=== PATIENT | male | born 1950 | race Caucasian/White ===

== ENCOUNTER 2023-11-23 20:18 | Emergency (ER) | payer MEDICARE, BC, SELFPAY ==
[2023-11-23 20:23] VITALS: BP 136/80; PULSE 96; RESP 21; TEMP 37.1; O2SAT 96
--- NOTE | 2023-11-23 20:29 | ECG_ITS ---
Test Date: 2023-11-23 20:34:16 Measurements Intervals [place] Rate: 97 P: 30 FL: 163 QRS: 3 QRSD: 97 T: 65 QT: 349 QTc: 443 Interpretive Statements SINUS RHYTHM NONSPECIFIC T-WAVE ABNORMALITY No previous ECG available for comparison Electronically Signed On 11-24-2023 08:53:33 CDT by Joshua Sunshine M.D.
[2023-11-23 20:31] VITALS: PULSE 96
[2023-11-23 20:32] VITALS: BP 136/80; PULSE 100; RESP 21; TEMP 37.1; O2SAT 96
[2023-11-23 20:52] LABS: Basophils Percent Auto 0.3 % (0.2-1.2); Hematocrit 41.6 % (42.0-52.0); Hemoglobin 14.1 g/dL (14.0-18.0); Immature Granulocyte Absolute 0.02 K/mm3 (0.00-0.031); Immature Granulocyte Percent A 0.2 % (0-0.5); Lymphocytes Absolute Auto 0.47 K/mm3 (0.9-3.2); Lymphocytes Percent Auto 5.1 % (18.3-44.2); Mean Corpuscular HGB Conc 33.9 g/dl (32-36); Mean Corpuscular Hemoglobin 31.9 pg (26-34); Mean Corpuscular Volume 94.1 fl (80-100); Mean Platelet Volume 10.4 fl (7.4-10.4); Monocytes Percent Auto 11.1 % (2.6-8.5); Neutrophils Absolute Auto 7.6 K/mm3 (1.3-6.7); Neutrophils Percent Auto 83.3 % (45.5-73.1); Platelet Count Result 159 k/mm3 (150-375); Red Blood Count 4.42 M/mm3 (4.6-6.20); Red Cell Distribution Width 12.6 % (11.5-14.5); White Blood Count 9.1 K/mm3 (4.5-10.0)
[2023-11-23 21:02] LABS: Alanine Aminotransferase 8 U/L (6-50); Albumin Level 4.2 g/dL (3.5-5.1); Alkaline Phosphatase 73 U/L (38-126); Anion Gap 11 mmol/L (4-12); Aspartate Amino Transferase 25 U/L (17-59); Bilirubin,Total 0.9 mg/dL (0.2-1.3); Blood Urea Nitrogen 17 mg/dL (9-20); Calcium 8.7 mg/dL (8.4-10.2); Carbon Dioxide 22 mmol/L (22-30); Chloride 102 mmol/L (98-107); Estimated CRCL calculation 57 ml/min; Estimated Glomerular Filt Rate > 60; Glucose 153 mg/dL (65-110); Lactic Acid Reflex 1.4 mmol/L (0.7-2.0); Magnesium 1.9 mg/dL (1.6-2.3); Potassium 4.2 mmol/L (3.4-5.0); Sodium 135 mmol/L (137-145)
[2023-11-23 21:07] VITALS: BP 131/82; PULSE 96; RESP 23; O2SAT 95
[2023-11-23] MEDS: SODIUM CHLORIDE 0.9% IV 1,000 ML 999 ML IV CONT (21:32)
--- NOTE | 2023-11-24 02:02 | ED.SYNCOPE ---
HPI - Syncope General Chief Complaint: Syncope Stated Complaint: syncope, covid+ Time Seen by Provider: 11/23/23 20:28 History of Present Illness HPI narrative: Patient was started feeling poorly yesterday with cough, has been slightly lightheaded and has diminished appetite, felt like he was going to pass out twice today, worse when he stands up or walks. Denies any headache or head trauma or neck pain. Related Data Allergies Allergy/AdvReac Type Severity Reaction Status Date / Time meperidine [From Demerol] Allergy Nausea and Verified 11/23/23 20:34 Vomiting Review of Systems Review of Systems: All systems reviewed & are unremarkable except as noted in HPI and below Exam Narrative: EXAMINATION OF ORGAN SYSTEMS/BODY AREAS: Constitutional: Vital signs per nursing GENERAL:[No acute distress, non-toxic appearing.] HEAD: Normal with no signs of head trauma. EYES: EOMI, conjunctiva normal ENT: Hearing grossly intact LUNGS: Nonlabored breathing. HEART: [Regular rate and rhythm] ABD: [Soft], [nontender to palpation] EXT: Normal range of motion SKIN: [No rashes or lesions.] NEURO: [Alert and oriented x 3. No gross focal sensory or strength deficits.] PSYCH: Normal affect Course Vital Signs Vital signs: Vital Signs Temperature 98.7 F 11/23/23 20:23 Pulse Rate 96 11/23/23 20:23 Respiratory Rate 21 H 11/23/23 20:23 Blood Pressure 136/80 11/23/23 20:23 Pulse Oximetry 96 11/23/23 20:23 Oxygen Delivery Room Air 11/23/23 20:23 Temperature 98.7 F 11/23/23 20:32 Pulse Rate 96 11/23/23 21:07 Respiratory Rate 23 H 11/23/23 21:07 Blood Pressure 131/82 11/23/23 21:07 Pulse Oximetry 95 11/23/23 21:07 Oxygen Delivery Room Air 11/23/23 20:32 MDM - Syncope MDM Narrative Medical decision making narrative: 73-year-old male presents with syncope in the setting of COVID infection and dehydration; denies head trauma or pain anywhere. He speak with clear speech has no focal neurologic deficits. He is very well-appearing here, given a L of IV fluids, labs are within acceptable limits, EKG on my independent interpretation shows normal sinus rhythm rate 97, MT, QRS, QTC normal, normal axis, no obvious ST elevations or depressions. Vital signs are normal, he is given a L of IV fluids, and on re-evaluation states that he is feeling much better. No longer feeling lightheaded. I will give him a prescription for pass fluid and have him follow up with his primary doctor, with strict return precautions. Patient agreeable to this plan. Lab Data 11/23/23 20:45 11/23/23 20:45 Labs: Lab Results 11/23/23 Range/Units 20:45 WBC 9.1 (4.5-10.0) K/mm3 RBC 4.42 L (4.6-6.20) M/mm3 Hgb 14.1 (14.0-18.0) g/dL Hct 41.6 L (42.0-52.0) % MCV 94.1 (80-100) fl MCH 31.9 (26-34) pg MCHC 33.9 (32-36) g/dl RDW 12.6 (11.5-14.5) % Plt Count 159 (150-375) k/mm3 MPV 10.4 (7.4-10.4) fl Immature Gran % (Auto) 0.2 (0-0.5) % Neut % (Auto) 83.3 H (45.5-73.1) % Lymph % (Auto) 5.1 L (18.3-44.2) % [place] % (Auto) 11.1 H (2.6-8.5) % Eos % (Auto) 0.0 (0-4.4) % Baso % (Auto) 0.3 (0.2-1.2) % Lymph # (Auto) 0.47 L (0.9-3.2) K/mm3 [place] # (Auto) 1.0 H (0.1-0.6) K/mm3 Eos # (Auto) 0.0 (0-0.3) K/mm3 Baso # (Auto) 0.0 (0.0-0.1) K/mm3 Abs Immat Gran (auto) 0.02 (0.00-0.031) K/mm3 Absolute Neuts (auto) 7.6 H (1.3-6.7) K/mm3 Absolute Nucleated RBC 0.000 (0.0-0.012) K/mm3 Nucleated RBC % 0.0 (0.0-0.2) % Sodium 135 L (137-145) mmol/L Potassium 4.2 (3.4-5.0) mmol/L Chloride 102 (98-107) mmol/L Carbon Dioxide 22 (22-30) mmol/L Anion Gap 11 (4-12) mmol/L BUN 17 (9-20) mg/dL Creatinine 1.00 (0.7-1.3) mg/dL Estim Creat Clear Calc 57 ml/min Estimated GFR > 60 (59 - ) Glucose 153 H (65-110) mg/dL Lactic Acid 1.4 (0.7-2.0) mmol/L Calcium 8.7 (8.4-10.2) mg/dL Magnesium 1.9 (1.6-2.3) mg/dL [place]
== END 2023-11-23 22:19 ==
PROVIDERS: Emergency Provider Emergency Medicine
DX: U07.1 COVID-19 (principal); R55 Syncope and collapse
CPT/HCPCS: 36415; 80053; 83605; 83735; 85025; 93005; 96360; 99284; J7030

== ENCOUNTER 2025-01-31 09:15 | Emergency (ER) | payer MEDICARE, BC, SELFPAY ==
[2025-01-31] VITALS (34 sets, daily range): BP systolic 71–157; BP diastolic 59–134; PULSE 77–117; RESP 12–34; TEMP 36.4; O2SAT 85–100
--- NOTE | ~2025-01-31 | CT_ITS ---
CHEST ABDOMEN PELVIS WITH CONTRAST CLINICAL HISTORY: syncope, right lower rib injury . COMPARISON: None TECHNIQUE: Helical CT performed from thoracic inlet to symphysis pubis IV contrast information not listed in PACS Coronal, sagittal reformats. Multi planar MIPS CT images acquired with automatic exposure control for dose reduction DLP: 936 mGy-cm FINDINGS: CHEST- Lungs/Pleura: Clear. Thoracic Aorta: No dissection. No aneurysm. Atherosclerotic disease. Pulmonary arteries: Normal caliber. Heart: Coronary artery calcifications. Tracheobronchial tree: Patent. Nodes: No enlarged nodes. Bones: No acute bony abnormality. Soft tissues: Unremarkable. ABDOMEN/PELVIS- Liver: Steatosis. Gallbladder: Unremarkable. Spleen: Unremarkable. Pancreas: Unremarkable. Adrenal glands: Unremarkable. Kidneys: lobulation and/or cortical defects. Right kidney- No hydronephrosis. No renal stones. Small probable cysts. Left kidney- No hydronephrosis. No renal stones. Small probable cysts. Distal esophagus/stomach: Unremarkable. Small bowel loops: Normal caliber and wall thickness. Colon: Normal caliber and wall thickness. Normal RLQ appendix. Moderate stool volume. Nodes: No enlarged nodes. Peritoneum: No ascites. No free air. Pelvis obscured by hip prostheses streak artifact. Urinary bladder: Unremarkable. Prostate: Obscured. Bones: No acute bony abnormality. L5 spondylolysis, with spondylolisthesis. Soft tissues: Unremarkable. Aorta: No aneurysm or dissection. Atherosclerotic disease. IVC: Unremarkable. Main portal vein/SMV/splenic vein: Patent. IMPRESSION: CHEST- 1. No acute findings. ABDOMEN/PELVIS- 1. No acute findings. Reviewed, dictated and finalized at location R.
--- NOTE | ~2025-01-31 | CT_ITS ---
CT HEAD NON-CONTRAST Clinical History: syncope, hit back of head Comparison: None Technique: Unenhanced axial images skull base to vertex Coronal, sagittal reformats CT images acquired with automatic exposure control for dose reduction DLP: 605 mGy-cm Findings: Mild age-related atrophy. White matter changes, typically chronic microvascular ischemic disease. Basal ganglia lacunae. Sulci, ventricles: Unremarkable. No intracerebral hemorrhage. No evidence acute territorial infarct. No mass effect, midline shift. Bony calvarium intact. Visualized paranasal sinuses: Clear. Mastoid air cells: Clear. IMPRESSION: 1. No acute intracranial findings. Reviewed, dictated and finalized at location R.
--- NOTE | ~2025-01-31 | XR_ITS ---
EXAMINATION: XR chest 1V 01/31/2025 10:00 INDICATION: Syncope PROCEDURE: AP view of the chest COMPARISON: No prior studies for comparison. FINDINGS: The lungs are clear. The cardiomediastinal silhouette is within normal limits. There are no pleural effusions. There is no pneumothorax suspected. IMPRESSION: 1: NO ACUTE CARDIOPULMONARY DISEASE. Reviewed, dictated and finalized at location O.
--- NOTE | 2025-01-31 09:19 | ECG_ITS ---
Test Date: 2025-01-31 09:21:30 Measurements Intervals [place] Rate: 86 P: 64 MT: 167 QRS: 51 QRSD: 97 T: 39 QT: 319 QTc: 383 Interpretive Statements SINUS RHYTHM NONSPECIFIC ST-T WAVE ABNORMALITY- DIFFUSE LEADS BASELINE ARTIFACT- I, II, III, AVR, AVL, AVF, V1-V6 BORDERLINE ECG Compared to ECG 11/23/2023 20:34:16 No significant changes Electronically Signed On 01-31-2025 11:23:53 CDT by Dale Willis D.O.
[2025-01-31 09:39] LABS: Hematocrit 44.0 % (42.0-52.0); Hemoglobin 14.5 g/dL (14.0-18.0); Immature Granulocyte Percent A 0.5 % (0-0.5); Lymphocytes Absolute Auto 1.64 K/mm3 (0.9-3.2); Mean Corpuscular HGB Conc 33.0 g/dl (32-36); Mean Corpuscular Hemoglobin 31.4 pg (26-34); Mean Corpuscular Volume 95.2 fl (80-100); Nucleated Red Blood Cells Absolute Auto 0.000 K/mm3 (0.0-0.012); Nucleated Red Blood Cells Perc 0.0 % (0.0-0.2); Platelet Count Result 214 k/mm3 (150-375); Red Blood Count 4.62 M/mm3 (4.6-6.20); White Blood Count 6.4 K/mm3 (4.5-10.0)
[2025-01-31 10:04] LABS: Alanine Aminotransferase 8 U/L (6-50); Albumin Level 4.3 g/dL (3.5-5.1); Alkaline Phosphatase 72 U/L (38-126); Anion Gap 10 mmol/L (4-12); Aspartate Amino Transferase 21 U/L (17-59); Bilirubin,Total 0.7 mg/dL (0.2-1.3); Blood Urea Nitrogen 21 mg/dL (9-20); Calcium 8.6 mg/dL (8.4-10.2); Carbon Dioxide 25 mmol/L (22-30); Chloride 104 mmol/L (98-107); Estimated CRCL calculation 54 ml/min; Estimated Glomerular Filt Rate > 60; Glucose 151 mg/dL (65-110); Potassium 4.2 mmol/L (3.4-5.0); Sodium 139 mmol/L (137-145); Total Protein 7.5 g/dL (6.3-8.2)
[2025-01-31] MEDS: SODIUM CHLORIDE 0.9% IV 1,000 ML 999 ML IV CONT ×2 (10:07→11:44)
[2025-01-31 10:13] LABS: INR 1.1; Prothrombin Time 14.3 Seconds (11.1-14.7)
[2025-01-31 10:14] LABS: Partial Thromboplastin Time 24.1 Seconds (22.3-36.8)
[2025-01-31 10:15] LABS: Troponin I < 0.012 ng/mL (0.000-0.034)
--- NOTE | 2025-01-31 11:37 | ED.SYNCOPE ---
HPI - Syncope General Chief Complaint: Syncope Stated Complaint: syncope Time Seen by Provider: 01/31/25 09:45 Source: patient, EMS and RN notes reviewed Mode of arrival: ambulatory Limitations: no limitations History of Present Illness HPI narrative: 74-year-old male patient presents to the ER via EMS complaining of a syncopal episode. Patient has a history of Parkinson's and orthostatic hypotension. Patient said this morning he said he was not feeling well when he was walking back to his room he fell down lost consciousness. Patient reports feeling dizzy and lightheaded prior to losing consciousness. Follow-up was witnessed by staff, only down for approximately 30 seconds. Patient apparently hit the back of his head. Patient is any headache, fevers, nausea, vomiting, neck pain, back pain, numbness, tingling and chest pain difficulty breathing, or any other symptoms. Patient reports he feels fine mildly since her every feels dizzy when he stands up. Related Data Allergies Allergy/AdvReac Type Severity Reaction Status Date / Time meperidine (From Demerol) Allergy Nausea and Verified 11/23/23 20:34 Vomiting Review of Systems Review of Systems: CONSTITUTIONAL: Denies fever, chills, or sweats. EYES: Denies visual changes, redness, or discharge. ENT: Denies rhinorrhea, congestion, sore throat, or otalgia. CARDIOVASCULAR: Denies chest pain, palpitations, edema. Positive for dizziness and lightheadedness. RESPIRATORY: Denies cough or dyspnea. GASTROINTESTINAL: Denies abdominal pain, nausea, vomiting, or diarrhea. GENITOURINARY: Denies dysuria or hematuria. SKIN: Denies rash or itching. MUSCULOSKELETAL: Denies back pain, joint pain, or myalgia. NEUROLOGIC: Denies headache, numbness, or weakness. Positive for loss of consciousness. PSYCHIATRIC: Denies anxiety or depression. All other systems reviewed are negative, except as documented in HPI. PMFSH Past Medical History Medical History Orthostatic hypotension Hyperlipidemia Major depressive disorder Dysphagia Parkinsons disease Comments At the time of my signature, I reviewed and agree with the nursing past medical, surgical, social, and family history. There is no relevant family history pertinent to the patient complaint. Exam Narrative: GENERAL: This is a well-nourished, well-developed adult, in no apparent distress. They are non ill-appearing, nontoxic appearing. HEAD: normocephalic, atraumatic. EYES: Sclera clear/white. Conjunctiva normal. Vision is grossly intact. Extraocular movements intact. Pupils PERRLA EARS: External ears normal, Hearing grossly intact. NOSE: External nose normal THROAT: Mucous membranes moist, NECK: Neck supple, non-tender without lymphadenopathy, masses or thyromegaly. No cervical point tenderness, crepitus, or step-offs. Neck is nontender through full range of motion. CARDIOVASCULAR: Regular rate and rhythm without murmurs, gallops, or rubs. RESPIRATORY: Clear to auscultation. Breath sounds equal bilaterally. No wheezes, rales, or rhonchi. SKIN: warm, Dry, intact with no suspicious lesions or rash, good texture and turgor. NEURO: awake, alert, and oriented to person, place and time. There were no obvious focal neurologic abnormalities. EXTREMITIES: No joint tenderness, effusion, or edema noted. BACK: Nontender without deformity. No CVA tenderness. Course Course Emergency Course: Portions of this record may have been created with voice recognition software Vital Signs Vital signs: Vital Signs Temperature 97.6 F 01/31/25 09:19 Pulse Rate 86 01/31/25 09:19 Respiratory Rate 15 01/31/25 09:19 Blood Pressure 127/92 H 01/31/25 09:19 Pulse Oximetry 100 01/31/25 09:19 Oxygen Delivery Room Air 01/31/25 09:19 Temperature 97.6 F 01/31/25 09:19 Pulse Rate 110 H 01/31/25 14:09 Respiratory Rate 34 H 01/31/25 14:09 Blood Pressure 90/73 L 01/31/25 14:09 Pulse Oximetry 98 01/31/25 14:09 Oxygen Delivery Room Air 01/31/25 09:38 Reviewed MDM - Syncope MDM Narrative Medical decision making narrative: Patient's orthostatics are positive, patient given 1 L of IV fluids. CBC grossly unremarkable, no leukocytosis, no anemia. Coags normal. Chemistry grossly unremarkable, slightly elevated BUN. Normal creatinine GFR. Initial troponin negative. 3 hour troponin pending. Head CT negative for any acute intracranial findings. PECARN C-spine injury score 0, no CT indicated for cervical spine my low suspicion for cervical injury. Patient having no point tenderness or pain with neck movement. Patient likely had a syncopal episode due to orthostatic hypotension. Patient is still orthostatic after 1 L of fluid, reporting feeling dizzy while standing, additional fluids given. Will recheck or throws after additional L. EKG sinus rhythm without any ischemic findings, no heart blocks or ectopy noted. EKG appears unchanged compared to previous EKG. Patient informed provider his left lower rib starting her, palpate lower ribs appears tenderness to palpation. No flail chest segment, no paradoxical movements, no obvious bruising injury to the left lower rib. Given patient's age in history will go ahead and obtain CT chest abdomen pelvis with contrast to assess for rib fractures to assess for any internal injuries from his fall. CT abdomen pelvis with contrast reveals no any acute injuries or acute findings. No evidence of rib fracture, patient likely has rib contusions. Patient is given incentive spirometer. Urine without any evidence of infection. Repeat orthostatics after 2 L of fluids reveals markedly improved blood pressure however still hypotensive and slightly dizzy. Patient is a known problem for orthostatic hypotension related to his Parkinson's disease. Patient does take midodrine at home, his family says that he has been having issue with hypertension from the midodrine and has been taking amlodipine and there has been a change in medications with his primary doctor between amlodipine and midodrine to help with the symptoms. The patient is comfortable with going home. Patient is hemodynamically stable to be discharged home for outpatient follow-up. Advised patient to change positions slowly especially while standing to have helped when he has to stand up and walk around. Also discussed with patient to talk about medication changes for his orthostatic hypotension. Discussed physical exam findings. Advised supportive measures and signs/symptoms to go to the ER. Pt is appropriate for outpt treatment and f/u. Differential Diagnosis Differential diagnosis: Likely syncope due to orthostatic hypotension, vasovagal syncope and subarachnoid hemorrhage Lab Data Attestation: I reviewed the patient's lab results. 01/31/25 09:32 01/31/25 09:32 Labs: Lab Results 01/31/25 01/31/25 01/31/25 Range/Units 09:32 12:38 13:42 WBC 6.4 (4.5-10.0) K/mm3 RBC 4.62 (4.6-6.20) M/mm3 Hgb 14.5 (14.0-18.0) g/dL Hct 44.0 (42.0-52.0) % MCV 95.2 (80-100) fl MCH 31.4 (26-34) pg MCHC 33.0 (32-36) g/dl RDW 12.5 (11.5-14.5) % Plt Count 214 (150-375) k/mm3 MPV 9.7 (7.4-10.4) fl Immature Gran % (Auto) 0.5 (0-0.5) % Neut % (Auto) 62.7 (45.5-73.1) % Lymph % (Auto) 25.7 (18.3-44.2) % [place] % (Auto) 7.5 (2.6-8.5) % Eos % (Auto) 2.8 (0-4.4) % Baso % (Auto) 0.8 (0.2-1.2) % Lymph # (Auto) 1.64 (0.9-3.2) K/mm3 [place] # (Auto) 0.5 (0.1-0.6) K/mm3 Eos # (Auto) 0.2 (0-0.3) K/mm3 Baso # (Auto) 0.1 (0.0-0.1) K/mm3 Abs Immat Gran (auto) 0.03 (0.00-0.031) K/mm3 Absolute Neuts (auto) 4.0 (1.3-6.7) K/mm3 Absolute Nucleated RBC 0.000 (0.0-0.012) K/mm3 Nucleated RBC % 0.0 (0.0-0.2) % PT 14.3 (11.1-14.7) Seconds INR 1.1 APTT 24.1 (22.3-36.8) Seconds Sodium 139 (137-145) mmol/L Potassium 4.2 (3.4-5.0) mmol/L Chloride 104 (98-107) mmol/L Carbon Dioxide 25 (22-30) mmol/L Anion Gap 10 (4-12) mmol/L BUN 21 H (9-20) mg/dL Creatinine 1.05 (0.7-1.3) mg/dL Estim Creat Clear Calc 54 ml/min Estimated GFR > 60 (59 - ) Glucose 151 H (65-110) mg/dL Calcium 8.6 (8.4-10.2) mg/dL Total Bilirubin 0.7 (0.2-1.3) mg/dL AST 21 (17-59) U/L ALT 8 (6-50) U/L Alkaline Phosphatase 72 (38-126) U/L Troponin I < 0.012 < 0.012 (0.000-0.034) ng/mL Total Protein 7.5 (6.3-8.2) g/dL Albumin 4.3 (3.5-5.1) g/dL Urine Color Yellow (Yellow) Urine Appearance Clear (Clear) Urine pH 7.0 (5.0-9.0) Ur Specific [place] 1.004 (1.001-1.035) Urine Protein Negative (Negative) mg/dL Urine Glucose (UA) Negative (Negative) mg/dL Urine Ketones Negative (Negative) mg/dL Ur Blood (Man) Negative (Negative) Urine Nitrate Negative (Negative) Urine Bilirubin Negative (Negative) Urine Urobilinogen 0.2 (<2.0) mg/dL Leukocyte Esterase Rfl Negative (Negative) FABY/UL Imaging Data Radiologist's impression: ITS Impressions Head CT 01/31/25 09:58 IMPRESSION: 1. No acute intracranial findings. Chest X-Ray 01/31/25 10:03 IMPRESSION: 1: NO ACUTE CARDIOPULMONARY DISEASE. CT CHEST/ABDOMEN/PELVIS W/ CONTRAST IMPRESSION: CHEST- 1. No acute findings. ABDOMEN/PELVIS- 1. No acute findings. ECG Data EKG #1: Attestation: I personally reviewed and interpreted this ECG as follows: ECG completion date: 01/31/25 ECG completion time: EKG Interpretation: normal rate, sinus rhythm, no ST changes, normal QRS, normal QT and NL axis Critical Care Time Critical Care Time Critical Care Time: No Discharge Plan Discharge Clinical Impression: Syncope due to orthostatic hypotension, Contusion of rib on left side Patient Disposition: Home Condition: Stable Instructions: Syncope (ED) Additional Instructions: Your workup today here in the ER is grossly unremarkable and reassuring. No evidence of infection any significant injuries. Is likely you have orthostatic hypotension related to her Parkinson's disease. Please change positions slowly, please have assistance when standing up. Drink plenty of fluids consume a adequate amount of salt. Please 2 g a day. Follow-up with your primary care provider 3-5 days about orthostatic hypotension. It is likely of a rib contusion from her fall today. Please use the incentive spirometer every 2 hours on the hour intake 10 deep breaths while awake to prevent any pneumonia. Return the ER if you pass out again, any other injuries, chest pain, difficulty breathing, fevers, cough for nausea vomiting, weakness, or any serious concerns. Patient Language: Swedish Prescriptions: No Action Paxlovid 300 mg (150 mg x 2)-100 mg tablets,dose pack See Rx Instructions .ROUTE .COMPLEX Qty: 30 0RF Rx Instructions: take TWO 150 mg tablets of nirmatrelvir with ONE 100 mg tablet of ritonavir twice daily for 5 days acetaminophen [Tylenol Extra Strength] 500 mg tablet 1,000 mg PO Q6H PRN (Reason: pain) Qty: 50 0RF Follow-up/Referrals: Tony,Lisandro Lino DO [Primary Care Provider, Unknown] Time of Disposition: 14:31
[2025-01-31 13:05] LABS: Troponin I < 0.012 ng/mL (0.000-0.034)
[2025-01-31 14:06] LABS: Add Urine Microscopic? NO; Appearance Urine Clear (Clear); Glucose Urine UA Negative (Negative); Leukocyte Esterase Ur Negative LEU/UL (Negative); Nitrate Urine Negative (Negative); Specific Grav Ur 1.004 (1.001-1.035)
[2025-01-31] MEDS: ACETAMINOPHEN 500 MG TABLET 1000 MG PO (14:20)
== END 2025-01-31 14:55 ==
PROVIDERS: Emergency Medicine; PCP Internal Medicine
DX: I95.1 Orthostatic hypotension (principal); S20.212A Contusion of left front wall of thorax, initial encounter; G20.A1 Parkinson's disease without dyskinesia, without mention of fluctuations; E78.5 Hyperlipidemia, unspecified; R94.31 Abnormal electrocardiogram [ECG] [EKG]; W18.39XA Other fall on same level, initial encounter
CPT/HCPCS: 36415; 70450; 71045; 71260; 74177; 80053; 81003; 84484; 85025; 85610; 85730; 93005; 96360; 96361; 99284; A9270; J7030; Q9967

== ENCOUNTER 2025-02-03 18:12 | Emergency (ER) | payer MEDICARE, BC, SELFPAY ==
--- NOTE | ~2025-02-03 | CT_ITS ---
CT cervical spine wo con HISTORY: fall COMPARISON: None TECHNIQUE: Axial images of the cervical spine were obtained. Multiplanar reconstruction in the coronal, sagittal and axial reformats to evaluate for cervical fracture. FINDINGS: The images demonstrate no acute fracture or paravertebral soft tissue swelling. Severe degenerative changes with disc space narrowing endplate sclerosis and uncovertebral hypertrophy resulting in moderate to severe neural foraminal stenosis. The visualized aspect of the upper lungs are clear. IMPRESSION: No acute fracture or subluxation. Moderate to severe multilevel degenerative changes. All CT scans at this facility are performed using low dose modulation techniques as appropriate to perform exam including the following: automated exposure control; adjustment of the mA and/or kV according to patient size (this includes techniques or standardized protocols for targeted exams where does is matched to indication/reason for exam; i.e. extremities or head); use of iterative reconstruction technique). Reviewed, dictated and finalized at location S. IMPRESSION: No acute fracture or subluxation. Moderate to severe multilevel degenerative changes. All CT scans at this facility are performed using low dose modulation techniqu es as appropriate to perform exam including the following: automated exposure c ontrol; adjustment of the mA and/or kV according to patient size (this includes techniques or standardized protocols for targeted exams where does is matched to indication/reason for exam; i.e. extremities or head); use of iterative brenda nstruction technique).
--- NOTE | ~2025-02-03 | CT_ITS ---
CT brain wo con HISTORY:fall COMPARISON: None. TECHNIQUE: Axial images were obtained of the head without intravenous contrast. FINDINGS: No acute intracranial hemorrhage, mass effect or midline shift. No extra-axial fluid collections. The calvarium is intact. Visualized paranasal sinuses and mastoid air cells are clear. IMPRESSION: No acute intracranial hemorrhage or extra axial fluid collections. All CT scans at this facility are performed using low dose modulation techniques as appropriate to perform exam including the following: automated exposure control; use of iterative reconstruction technique; adjustment of the mA and/or kV according to patient size (this includes techniques or standardized protocols for targeted exams where dose is matched to indication/reason for exam). Reviewed, dictated and finalized at location S. IMPRESSION: No acute intracranial hemorrhage or extra axial fluid collections. All CT scans at this facility are performed using low dose modulation techniqu es as appropriate to perform exam including the following: automated exposure c ontrol; use of iterative reconstruction technique; adjustment of the mA and/or kV according to patient size (this includes techniques or standardized protocol s for targeted exams where dose is matched to indication/reason for exam).
[2025-02-03 18:09] VITALS: BP 145/99; PULSE 91; RESP 18; TEMP 36.6; O2SAT 97
--- NOTE | 2025-02-03 19:37 | ED.FALL ---
HPI - Fall General Chief Complaint: Fall Stated Complaint: fall, laceration Time Seen by Provider: 02/03/25 18:35 History of Present Illness HPI Narrative: This is a 74-year-old male with history of Parkinson's disease and orthostatic hypotension who presents to the ED for fall. Patient states that he had dropped something on the floor in the important gravel when he kept going and fell and hit his left forehead on the linoleum floor. Denies loss consciousness. He did sustain a laceration for which family brought him in. He is not on any blood thinners. Denies any preceding symptoms. Related Data Allergies Allergy/AdvReac Type Severity Reaction Status Date / Time meperidine (From Demerol) Allergy Nausea and Verified 02/03/25 18:17 Vomiting Review of Systems Review of Systems: Gen.: Denies fevers or chills Eyes: Denies eye pain or visual change ENT: Denies congestion Respiratory: Denies shortness of breath or cough CV: Denies chest pain or palpitations GI: Denies abdominal pain nausea, emesis or diarrhea denies burning, urgency, frequency or hematuria Musculoskeletal: Denies back pain or muscle pain Neuro: Denies numbness, tingling, weakness or focal weakness Skin: Denies rash Except as documented, all other systems reviewed and negative PMFSH Past Medical History Medical History Orthostatic hypotension Hyperlipidemia Major depressive disorder Dysphagia Parkinsons disease Exam Narrative: APPEARANCE: No acute distress, nontoxic, resting in bed EYES: EOMI HEENT: Normocephalic, OMM. 2cm laceration to the left lateral forehead, bleeding controlled RESPIRATORY: No respiratory distress Clear to auscultation bilaterally with no rhonchi wheezing or rales. CARDIOVASCULAR: Regular rate and rhythm without murmurs rubs or gallops. ABDOMINAL: Soft, nontender, nondistended, no rebound or guarding MUSCULOSKELETAl: Moves all extremities. No clubbing, cyanosis or edema. NEURO: Awake and alert. Following commands, speech normal, no focal deficits SKIN:: Warm, dry. No rashes lesions or abrasions PSYCHIATRIC: Normal affect/mood, Course Vital Signs Vital signs: Vital Signs Temperature 97.8 F 02/03/25 18:09 Pulse Rate 91 02/03/25 18:09 Respiratory Rate 18 02/03/25 18:09 Blood Pressure 145/99 H 02/03/25 18:09 Pulse Oximetry 97 02/03/25 18:09 Oxygen Delivery Room Air 02/03/25 18:09 Temperature 98.2 F 02/03/25 20:33 Pulse Rate 88 02/03/25 20:33 Respiratory Rate 20 02/03/25 20:33 Blood Pressure 138/72 02/03/25 20:33 Pulse Oximetry 99 02/03/25 20:33 Oxygen Delivery Room Air 02/03/25 18:09 Procedures Laceration Laceration 1: Date: 02/03/25 Time: 20:05 Site: face Side (If applicable): left Size (cm): 2 Description: linear Depth: simple, single layer Local Anesthetic: lidocaine 1% and with epi Amount of anesthesia used (mL): 5 Pre-repair: wound explored and irrigated ====== Skin Level ====== Skin layer closed with: nylon Size (cm): 5-0 Number of sutures: 4 Technique: simple, interrupted ====== Subcutaneous Layer ====== ====== Muscle Layer ====== ====== Tendon Layer ====== MDM - Fall MDM Narrative Medical decision making narrative: 74-year-old male presenting for fall with laceration. On initial evaluation, patient was in no acute distress, afebrile, hemodynamically stable. Did have small laceration to his left temporal forehead, bleeding was controlled. No focal neurologic deficits. CT brain and C-spine were obtained and showed no acute abnormalities. Laceration was repaired as above, patient tolerated procedure well. Patient was to discharged this time. He is advised to follow-up with PCP next week for re-evaluation. Patient was agreeable to this plan. Given strict return precautions. Differential Diagnosis Differential diagnosis: Likely other (Laceration, intracranial hemorrhage fracture hematoma) Medical Records Attestation: I reviewed the patient's medical records. Lab Data Attestation: I reviewed the patient's lab results. Imaging Data Attestation: I personally reviewed and interpreted this imaging study as follows: Radiologist's impression: Impressions Head CT 02/03/25 18:45 IMPRESSION: No acute intracranial hemorrhage or extra axial fluid collections. All CT scans at this facility are performed using low dose modulation techniques as appropriate to perform exam including the following: automated exposure control; use of iterative reconstruction technique; adjustment of the mA and/or kV according to patient size (this includes techniques or standardized protocols for targeted exams where dose is matched to indication/reason for exam). Cervical Spine CT 02/03/25 18:48 IMPRESSION: No acute fracture or subluxation. Moderate to severe multilevel degenerative changes. All CT scans at this facility are performed using low dose modulation techniques as appropriate to perform exam including the following: automated exposure control; adjustment of the mA and/or kV according to patient size (this includes techniques or standardized protocols for targeted exams where does is matched to indication/reason for exam; i.e. extremities or head); use of iterative reconstruction technique). Discharge Plan Discharge Clinical Impression: Fall, Facial laceration Patient Disposition: Home Condition: Stable Instructions: Antibiotic Form, Laceration (ED) Additional Instructions: sutures may be removed in the next 5-7 days by either your PCP or by any ED. return to the ED for any new or worsening symptoms. Patient Language: Mongolian Prescriptions: No Action Paxlovid 300 mg (150 mg x 2)-100 mg tablets,dose pack See Rx Instructions .ROUTE .COMPLEX Qty: 30 0RF Rx Instructions: take TWO 150 mg tablets of nirmatrelvir with ONE 100 mg tablet of ritonavir twice daily for 5 days acetaminophen [Tylenol Extra Strength] 500 mg tablet 1,000 mg PO Q6H PRN (Reason: pain) Qty: 50 0RF Follow-up/Referrals: Tony,Lisandro Lino DO [Primary Care Provider, Unknown]
--- OUTSIDE RECORDS SUMMARY | 2025-02-03 19:37 | XMS_ITS | Patient Health Record ---
Author Organization [facility] Address [address] [place] [phone] Care Team Providers Care Forms Designer Name Role Phone Kari Rojas Primary Care Provider [phone] MANFRED CLARK Unavailable [phone] Cori Koo Unavailable [phone] Allergies Allergen (clinical drug ingredient) Drug/Non Drug Allergy documented on EMR Reaction Allergy Type Onset Date Status meperidine Demerol Unknown Drug Allergy Active Results Component Value Reference Range Notes Hemoglobin A1c Reviewed date:09/02/2024 11:05:27 AM Interpretation: Performing Lab: Notes/Report: Basic Metabolic Panel (8) Reviewed date:09/02/2024 11:05:16 AM Interpretation: Performing Lab: Notes/Report: CBC Reviewed date:09/02/2024 11:05:05 AM Interpretation: Performing Lab: Notes/Report: Reason For Referral No Information Medications Medication SIG (Take, Route, Frequency, Duration) Notes Start Date End Date Status Midodrine HCl 5 MG Tablet 1 tablet Orally Twice a day; Duration: 30 days IF SBP IS LOWER THAN 110 02/03/2025 Active amLODIPine Besylate 5 MG Tablet TAKE 1 TABLET BY MOUTH EVERY DAY; Duration: 90 Active Citalopram Hydrobromide 20 MG Tablet 1 tablet Orally Once a day Active Amantadine HCl 100 MG Tablet 1 tablet Orally Once a day Active Carbidopa-Levodopa 25-100 MG Tablet 2 tablets Orally three times a day Active Immunizations Vaccine Route Administration Date Status Commsumanth braden Pfizer COVID-19 Vaccine Unknown 04/23/2020 Administered Social History Tobacco Use: Social History Observation Description Date Details (start date - stop date) Never Smoker NA - NA Social History Drug/Alcohol: Social Info Question Answer Notes Drugs Have you used drugs other than those for medical reasons in the past 12 months? No AUDIT-C (Standard) Did you have a drink containing alcohol in the past year? No Points 0 Interpretation Negative Tobacco Use: Social Info Question Answer Notes Tobacco Control (Standard) Tobacco use: Nonsmoker Tobacco use other than smoking: Are you an other tobac co user? No Problems Problem Type SNOMED Code ICD Code Onset Dates Problem Status W/U Status Risk Notes Problem Mixed hyperlipidemia (096279678) Mixed hyperlipidemia (E78.2) Active confirmed Problem Hyperlipidemia (65412371) Hyperlipidemia, unspecified (E78.5) Active confirmed Problem Oral phase dysphagia (747686506) Dysphagia, oral phase (R13.11) Active confirmed Problem Parkinson's disease (disorder) (48454997) Parkinson's disease without dyskinesia or fluctuating manifestations (G20.A1) Active confirmed Problem Depressive disorder (03525203) Depressive disorder (F32.A) Active confirmed Vital Signs Heart Rate 66 /min 11/17/2024 Temperature 98.1 degrees Fahrenheit 11/17/2024 Respiratory Rate 20 /min 11/17/2024 Oximetry 99 % 11/17/2024 Blood pressure diastolic 74 mm Hg 11/17/2024 Blood pressure systolic 128 mm Hg 11/17/2024 Encounters Encounter Location Date Provider Diagnosis [address] [address] 02/23/2024 Cori Koo Parkinson's disease without dyskinesia or fluctuating manifestations G20.A1 ; Orthostatic hypotension I95.1 ; Hyperlipidemia, unspecified E78.5 and Depressive disorder F32.A [address] [address] 05/26/2024 [facility] Parkinson's disease without dyskinesia or fluctuating manifestations G20.A1 ; Orthostatic hypotension I95.1 ; Hyperlipidemia, unspecified E78.5 and Depressive disorder F32.A [address] [address] 08/18/2024 [facility] Parkinson's disease without dyskinesia or fluctuating manifestations G20.A1 ; Hyperlipidemia, unspecified E78.5 and Depressive disorder F32.A [address] [address] 11/17/2024 Kari Rojas Parkinson's disease without dyskinesia or fluctuating manifestations G20.A1 ; Hyperlipidemia, unspecified E78.5 and Depressive disorder F32.A [facility] [place] [address] [place] [address] 10/19/2024 MANFRED CLARK [facility] [place] [address] [place] [address] 10/27/2024 Kari Rojas [facility] [address] [id number] 10/27/2024 MANFRED CLARK [facility] [place] [address] [place] [address] 10/28/2024 MANFRED CLARK [facility] [place] [address] [place] [address] 10/28/2024 MANFRED CLARK [facility] [place] [address] [place] [address] 11/29/2024 Kari Rojas [facility] [address] [id number] 12/13/2024 MANFRED CLARK [facility] [place] [address] [place] [address] 12/14/2024 MANFRED CLARK [facility] [address] [id number] 01/10/2025 Kari Bob [facility] [place] [address] [place] [address] 02/01/2025 MANFRED CLARK [facility] [place] [address] [place] [address] 02/02/2025 Kari Rojas [facility] [place] [address] [place] [address] 02/03/2025 MANFRED CLARK [facility] [place] [address] [place] [address] 02/03/2025 Kari Rojas Assessments Encounter Date Diagnosis (ICD Code) Assessment Notes Treatment Notes Treatment Clinical Notes Section Notes 08/18/2024 Hyperlipidemia, unspecified (ICD-10 - E78.5) Last lipid panel 02/25/24 stable. Triglycerides WNL (88), HDL WNL (52), and LDL WNL (76). Currently taking low dose statin. Denies adverse signs or symptoms. 08/18/2024 Parkinson's disease without dyskinesia or fluctuating manifestations (ICD-10 - G20.A1) Patient is followed by neurology. Denies tremor. Symptoms well controlled with current dose of carbidopa-levodop a. Continue current treatment plan and monitoring. 11/17/2024 Parkinson's disease without dyskinesia or fluctuating manifestations (ICD-10 - G20.A1) Patient is followed by neurology. Denies tremor. Symptoms well controlled with current dose of carbidopa-levodop a. Continue current treatment plan and monitoring. 05/26/2024 Parkinson's disease without dyskinesia or fluctuating manifestations (ICD-10 - G20.A1) Patient is followed by neurology. Denies tremor. Symptoms well controlled with current dose of carbidopa-levodop a. Continue current treatment plan and monitoring. 02/23/2024 Orthostatic hypotension (ICD-10 - I95.1) BP well controlled and trending at goal. Recently started on midodrine by neurology on 01/28/24 due to being symptomatic. Denies symptoms since beginning new medication. Continue current treatment plan and monitoring. 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 He had previously been experiencing symptoms of apraxia, festination, and freezing as well as symptomatic orthostatic hypotension. He was prescribed midodrine during visit. He is scheduled to follow up with neurology 8 weeks after his previous appointment. Denies tremor. Symptoms well controlled with current dose of carbidopa-levodop a. Continue current treatment plan and monitoring. 05/26/2024 Orthostatic hypotension (ICD-10 - I95.1) BP well controlled and trending at goal. Continue current treatment plan and monitoring. 02/23/2024 Hyperlipidemia, unspecified (ICD-10 - E78.5) Last lipid panel 06/19/23 stable. Triglycerides elevated (229), HDL decreased (38), and LDL WNL (99). Currently taking low dose statin. Denies adverse signs or symptoms. Obtain lipid panel next lab draw date. 08/18/2024 Depressive disorder (ICD-10 - F32.A) Stable. Denies symptoms at this time. Pleasant and cooperative during visit. Currently taking citalopram. Continue current treatment plan and monitoring. 11/17/2024 Hyperlipidemia, unspecified (ICD-10 - E78.5) Last lipid panel 02/25/24 stable. Triglycerides WNL (88), HDL WNL (52), and LDL WNL (76). Currently taking low dose statin. Denies adverse signs or symptoms. 05/26/2024 Hyperlipidemia, unspecified (ICD-10 - E78.5) Last lipid panel 02/25/24 stable. Triglycerides WNL (88), HDL WNL (52), and LDL WNL (76). Currently taking low dose statin. Denies adverse signs or symptoms. 02/23/2024 Depressive disorder (ICD-10 - F32.A) Stable. Denies symptoms at this time. Pleasant and cooperative during visit. Currently taking citalopram. Continue current treatment plan and monitoring. 11/17/2024 Depressive disorder (ICD-10 - F32.A) Stable. Denies symptoms at this time. Pleasant and cooperative during visit. Currently taking citalopram. Continue current treatment plan and monitoring. 05/26/2024 Depressive disorder (ICD-10 - F32.A) Stable. Denies symptoms at this time. Pleasant and cooperative during visit. Currently taking citalopram. Continue current treatment plan and monitoring. 02/23/2024 Other Please fax records from patient's recent neurology appointment to office. Obtain CBC, BMP, magnesium, lipid panel, and A1C next lab draw date. Continue current treatment plan. Staff to continue to monitor and report any changes. Patient education provided and questions/concern s addressed. Follow up in three months unless necessary sooner. 05/26/2024 Other Continue current treatment plan. Staff to continue to monitor and report any changes. Patient education provided and questions/concern s addressed. Follow up in three months unless necessary sooner. Please refer to facility EHR for current and accurate medication list and treatments. 11/17/2024 Other Continue current treatment plan. Staff to continue to monitor and report any changes. Patient education provided and questions/concern s addressed. Follow up in three months unless necessary sooner. 08/18/2024 Other Continue current treatment plan. Staff to continue to monitor and report any changes. Patient education provided and questions/concern s addressed. Follow up in three months unless necessary sooner. Reviewed HIPAA Right to Privacy Practices with patient/family/ca regiver. Draw CBC, BMP, and A1C on next lab day. Plan Of Treatment Pending Test Test Name Order Date X ray : Knee, right 2 views 12/14/2024 Next Appt Details Provider Name:aKri Rojas , 02/09/2025 07:15:00 AM, [address], [place], [address], Insurance Providers Payer Name Payer Address Payer Phone Subscriber Number Group Number Insured Name Patient Relationship to Insured Coverage Start Date Coverage End Date [place] [address] [place] [address] [phone] [id number] 1 Tirso Acosta Self - patient is the insured Medicare of [place] [address] [facility] [place] [id number] [phone] [id number] Tirso Acosta Self - patient is the insured Medical (General) History Medical History History ICD Code Parkinsonism, unspecified G20.C Dysphagia, oral phase R13.11 Major depressive disorder, single episod e, unspecified F32.9 Hyperlipidemia, unspecified E78.5 Orthostatic hypotension I95.1 Surgical History Surgery Date(Month/Year) PARTIAL HIP REPLACEMENT TOTAL KNEE ARTHROPLASTY
[2025-02-03 20:33] VITALS: BP 138/72; PULSE 88; RESP 20; TEMP 36.8; O2SAT 99
--- NOTE | 2025-02-03 20:42 | PC.NURSE ---
This RN tried to call back pts facility. The phone number that was given to us is out of service
== END 2025-02-03 20:35 | disposition home or self-care (01) ==
PROVIDERS: Emergency Provider Student in an Organized Health Care Education/Training Program; PCP Internal Medicine
DX: S01.81XA Laceration without foreign body of other part of head, initial encounter (principal); E78.5 Hyperlipidemia, unspecified; G20.A1 Parkinson's disease without dyskinesia, without mention of fluctuations; W18.39XA Other fall on same level, initial encounter
CPT/HCPCS: 12011; 70450; 72125; 99284

== ENCOUNTER 2025-02-17 09:14 | Emergency (ER) | payer MEDICARE, BC, SELFPAY ==
[2025-02-17] VITALS (18 sets, daily range): BP systolic 131–197; BP diastolic 90–118; PULSE 80–112; RESP 13–29; TEMP 36.6; O2SAT 97–100
--- NOTE | ~2025-02-17 | XR_ITS ---
EXAMINATION: XR chest 2V, 02/17/2025 9:52 PROFESSOR OF THEATER HISTORY: dizzy COMPARISON: No comparisons available. Technique: 2 views obtained. Findings: The lungs are clear, no effusion. No pneumothorax. Heart is normal size. Mediastinal and hilar contours are within normal limits. Bony thorax no acute abnormality. Impression: No acute cardiopulmonary abnormality. Reviewed, dictated and finalized at location P. ESSOR OF THEATER Impression: No acute cardiopulmonary abnormality.
--- NOTE | ~2025-02-17 | CT_ITS ---
EXAMINATION: CT brain wo con DATE: 02/17/2025 13:36 INDICATION: Fall TECHNIQUE: Computed tomography (CT) of the head was performed without intravenous contrast. The dose-length product was 605.33 mGy-cm. COMPARISON: February 03, 2025 FINDINGS: No intracranial mass effect or hemorrhage. Chronic microvascular ischemia. White matter changes and diffuse volume loss similar to the previous exam. Calvarial structures appear intact. No large acute ischemic event seen. IMPRESSION: 1. No gross interval change from the January 2025 exam. Reviewed, dictated and finalized at location A. ERY INSTALLER
--- NOTE | 2025-02-17 09:24 | ECG_ITS ---
Test Date: 2025-02-17 09:35:55 Measurements Intervals [place] Rate: 80 P: 21 OK: 127 QRS: 29 QRSD: 90 T: 68 QT: 342 QTc: 397 Interpretive Statements SINUS RHYTHM NONSPECIFIC T-WAVE ABNORMALITY Electronically Signed On 02-17-2025 10:07:17 ENVIRONMENTAL MONITORING SPECIALIST by Kwan Trejo D.O
[2025-02-17 11:42] LABS: Hematocrit 42.1 % (42.0-52.0); Hemoglobin 13.9 g/dL (14.0-18.0); Immature Granulocyte Percent A 0.4 % (0-0.5); Lymphocytes Absolute Auto 1.25 K/mm3 (0.9-3.2); Mean Corpuscular HGB Conc 33.0 g/dl (32-36); Mean Corpuscular Hemoglobin 31.7 pg (26-34); Mean Corpuscular Volume 95.9 fl (80-100); Nucleated Red Blood Cells Absolute Auto 0.000 K/mm3 (0.0-0.012); Nucleated Red Blood Cells Perc 0.0 % (0.0-0.2); Platelet Count Result 211 k/mm3 (150-375); Red Blood Count 4.39 M/mm3 (4.6-6.20); White Blood Count 8.1 K/mm3 (4.5-10.0)
[2025-02-17 11:53] LABS: Alanine Aminotransferase 9 U/L (6-50); Albumin Level 4.4 g/dL (3.5-5.1); Alkaline Phosphatase 94 U/L (38-126); Anion Gap 8 mmol/L (4-12); Aspartate Amino Transferase 25 U/L (17-59); Bilirubin,Total 0.9 mg/dL (0.2-1.3); Blood Urea Nitrogen 18 mg/dL (9-20); Calcium 8.7 mg/dL (8.4-10.2); Carbon Dioxide 24 mmol/L (22-30); Chloride 105 mmol/L (98-107); Estimated CRCL calculation 53 ml/min; Estimated Glomerular Filt Rate > 60; Glucose 108 mg/dL (65-110); Potassium 4.2 mmol/L (3.4-5.0); Sodium 137 mmol/L (137-145); Total Protein 7.6 g/dL (6.3-8.2)
--- OUTSIDE RECORDS SUMMARY | 2025-02-17 12:30 | XMS_ITS | Patient Health Record ---
Author Organization [facility] Address [address] [id number] Care Team Providers Care Director Mobile Name Role Phone Kari Rojas Primary Care Provider DR. MANFRED CLARK Unavailable [phone] Cori Koo Unavailable [phone] Allergies Allergen (clinical drug ingredient) Drug/Non Drug Allergy documented on EMR Reaction Allergy Type Onset Date Status meperidine Demerol Unknown Drug Allergy Active Results Component Value Reference Range Notes X ray : Knee, right 2 views Reviewed date:02/14/2025 03:23:27 PM Interpretation: Performing Lab: Notes/Report: CBC Reviewed date:09/02/2024 11:05:05 AM Interpretation: Performing Lab: Notes/Report: Basic Metabolic Panel (8) Reviewed date:09/02/2024 11:05:16 AM Interpretation: Performing Lab: Notes/Report: Hemoglobin A1c Reviewed date:09/02/2024 11:05:27 AM Interpretation: Performing Lab: Notes/Report: Reason For Referral No Information Medications Medication SIG (Take, Route, Frequency, Duration) Notes Start Date End Date Status Amantadine HCl 100 MG Tablet 1 tablet Orally Once a day Active Carbidopa-Levodopa 25-100 MG Tablet 2 tablets Orally three times a day Active amLODIPine Besylate 5 MG Tablet TAKE 1 TABLET BY MOUTH EVERY DAY; Duration: 90 Active Citalopram Hydrobromide 20 MG Tablet 1 tablet Orally Once a day Active Midodrine HCl 5 MG Tablet 1 tablet Orally Twice a day; Duration: 30 days IF SBP IS LOWER THAN 110 02/03/2025 Active Immunizations Vaccine Route Administration Date Status Blas braden Pfizer COVID-19 Vaccine Unknown 04/23/2020 Administered [...] W/U Status Risk Notes Problem Mixed hyperlipidemia (521215061) Mixed hyperlipidemia (E78.2) Active confirmed Problem Hyperlipidemia (90708139) Hyperlipidemia, unspecified (E78.5) Active confirmed Problem Oral phase dysphagia (256915580) Dysphagia, oral phase (R13.11) Active confirmed Problem Parkinson's disease (disorder) (02915142) Parkinson's disease without dyskinesia or fluctuating manifestations (G20.A1) Active confirmed Problem Depressive disorder (04507610) Depressive disorder (F32.A) Active confirmed Vital Signs Heart Rate 72 /min 02/09/2025 Temperature 97.4 degrees Fahrenheit 02/09/2025 Respiratory Rate 18 /min 02/09/2025 Oximetry 99 % 11/17/2024 Blood pressure diastolic 66 mm Hg 02/09/2025 Blood pressure systolic 124 mm Hg 02/09/2025 Encounters Encounter Location Date Provider Diagnosis [address] [address] 02/23/2024 Cori Koo Parkinson's disease without dyskinesia or fluctuating manifestations G20.A1 ; Orthostatic hypotension I95.1 ; Hyperlipidemia, unspecified E78.5 and Depressive disorder F32.A [facility] [address] [address] 05/26/2024 Kari Rojas Parkinson's disease without dyskinesia or fluctuating manifestations G20.A1 ; Orthostatic hypotension I95.1 ; Hyperlipidemia, unspecified E78.5 and Depressive disorder F32.A [address] [address] 08/18/2024 Kari Rojas Parkinson's disease without dyskinesia or fluctuating manifestations G20.A1 ; Hyperlipidemia, unspecified E78.5 and Depressive disorder F32.A [facility] [place] [address] [place] [address] 11/17/2024 Kari Rojas Parkinson's disease without dyskinesia or fluctuating manifestations G20.A1 ; Hyperlipidemia, unspecified E78.5 and Depressive disorder F32.A [facility] [place] [address] [place] [address] 02/09/2025 Kari Rojas Syncope and collapse R55 [facility] [place] [address] [place] [address] 10/19/2024 MANFRED AMBER [facility] [place] [address] [place] [address] 10/27/2024 Kari Rojas [facility] [address] [phone] 10/27/2024 MANFRED CLARK [facility] [place] [address] [place] [address] 10/28/2024 MANFRED CLARK [facility] [place] [address] [place] [address] 10/28/2024 MANFRED CLARK [facility] [place] [address] [place] [address] 11/29/2024 Kari Rojas [facility] [address] [phone] 12/13/2024 MANFRED CLARK [facility] [place] [address] [place] [address] 12/14/2024 MANFRED CLARK [facility] [address] [phone] 01/10/2025 Kari Rojas [facility] [place] [address] [place] [address] 02/01/2025 MANFRED CLARK [facility] [place] [address] [place] [address] 02/02/2025 Kari Rojas [facility] [place] [address] [place] [address] 02/03/2025 MANFRED CLARK [facility] [place] [address] [place] [address] 02/03/2025 Kari Rojas [facility] [place] [address] [place] [address] 02/05/2025 Kari Rojas [facility] [address] [phone] 02/09/2025 Kari Rojas [facility] [place] [address] [place] [address] 02/10/2025 Kari Rojas Assessments Encounter Date Diagnosis (ICD Code) Assessment Notes Treatment Notes Treatment Clinical Notes Section Notes 02/23/2024 Orthostatic hypotension (ICD-10 - I95.1) BP [...] a. Continue current treatment plan and monitoring. 08/18/2024 Hyperlipidemia, unspecified (ICD-10 - E78.5) Last [...] a. Continue current treatment plan and monitoring. 02/09/2025 Syncope and collapse (ICD-10 - R55) Patient was sent to the emergency room twice, once on 01/31/2025 and once on 02/03/2025 due to having syncopal episode, which resulted in a fall both times. The second time on 02/03/2025, patient did sustain a gash to his left forehead and had four sut[address]. Since the falls, patient's medications have been adjusted and midodrine 5 mg b.i.d. was ordered due to patient having low blood pressures. Patient does see his neurologist on 02/15/2025. Patient reports that he has not been having any more dizzy spells since starting on the midodrine. Staff report patient was staying in his room due to feeling dizzy and unstable, but now has been coming back out and doing all the activities he has normally done in the past. Provider did remove the four sutures without any problems.Order given to apply GONZALO to the area and monitor for any problems. Lacerationis looking very well. 05/26/2024 Orthostatic hypotension (ICD-10 - I95.1) BP well controlled and trending at goal. Continue current treatment plan and monitoring. 08/18/2024 Depressive disorder (ICD-10 - F32.A) Stable. Denies symptoms at this time. Pleasant and cooperative during visit. Currently taking citalopram. Continue current treatment plan and monitoring. 11/17/2024 Hyperlipidemia, unspecified (ICD-10 - E78.5) Last lipid panel 02/25/24 stable. Triglycerides WNL (88), HDL WNL (52), and LDL WNL (76). Currently taking low dose statin. Denies adverse signs or symptoms. 02/23/2024 Hyperlipidemia, unspecified (ICD-10 - E78.5) Last lipid panel 06/19/23 stable. Triglycerides elevated (229), HDL decreased (38), and LDL WNL (99). Currently taking low dose statin. Denies adverse signs or symptoms. Obtain lipid panel next lab draw date. 02/23/2024 Depressive disorder (ICD-10 - F32.A) Stable. Denies symptoms at this time. Pleasant and cooperative during visit. Currently taking citalopram. Continue current treatment plan and monitoring. 05/26/2024 Hyperlipidemia, unspecified (ICD-10 - E78.5) Last lipid panel 02/25/24 stable. Triglycerides WNL (88), HDL WNL (52), and LDL WNL (76). Currently taking low dose statin. Denies adverse signs or symptoms. 11/17/2024 Depressive disorder (ICD-10 - F32.A) Stable. [...] current and accurate medication list and treatments. 08/18/2024 Other Continue current treatment plan. Staff to continue to monitor and report any changes. Patient education provided and questions/concern s addressed. Follow up in three months unless necessary sooner. Reviewed HIPAA Right to Privacy Practices with patient/family/ca regiver. Draw CBC, BMP, and A1C on next lab day. 11/17/2024 Other Continue current treatment plan. Staff to continue to monitor and report any changes. Patient education provided and questions/concern s addressed. Follow up in three months unless necessary sooner. 02/09/2025 Other Continue current treatment plan. Staff to continue to monitor and report any changes. Patient education provided and questions/concern s addressed. Follow up in 3 months unless necessary sooner. Plan Of Treatment Next Appt Details Provider Name:Kari Bob , 02/23/2025 12:00:00 PM, [address] [facility] [place], [address], Insurance Providers Payer Name Payer Address Payer Phone Subscriber Number Group Number Insured Name Patient Relationship to Insured Coverage Start Date Coverage End Date [employer] [address] [place] [address] [phone] [id number] 1 Tirso Acosta Self - patient is the insured [employer] of [place] [address] MALIA MORALES [id number] Tirso Acosta Self - patient is the insured Medical (General) History Medical History History ICD Code Parkinsonism, unspecified G20.C Dysphagia, oral phase R13.11 Major depressive disorder, single episod e, unspecified F32.9 Hyperlipidemia, unspecified E78.5 Orthostatic hypotension I95.1 Surgical History Surgery Date(Month/Year) PARTIAL HIP REPLACEMENT TOTAL KNEE ARTHROPLASTY
--- NOTE | 2025-02-17 14:56 | ED.DIZZY ---
HPI - Dizziness General Chief Complaint: Dizziness Stated Complaint: dizzy Time Seen by Provider: 02/17/25 12:08 Source: patient and family Mode of arrival: wheelchair Limitations: no limitations History of Present Illness HPI Narrative: 74-year-old with a history of Parkinson's, postural hypertension was brought in by family with a complains of fall. Patient is daughter who is at bedside states that he fell twice in the last 1 week his. He is presently on midodrine foot is orthostatic hypertension. He presently has mild headache from the fall denies any chest pain or shortness of breath. No history of nausea or vomiting. Daughter states he is on Norvasc . MD elicited complaint: dizziness Pertinent past history: other (Orthostatic hypertension) Onset (ago): year(s) Timing: gradual onset Severity: moderate Description: off-balance History of similar symptoms: Yes Exacerbating factors: nothing Relieving factors: nothing Associated symptoms: denies other symptoms Related Data Allergies Allergy/AdvReac Type Severity Reaction Status Date / Time meperidine (From Demerol) Allergy Nausea and Verified 02/17/25 09:23 Vomiting PMFSH Past Medical History Medical History Orthostatic hypotension Hyperlipidemia Major depressive disorder Dysphagia Parkinsons disease Exam Narrative: GENERAL: Well-appearing, well-nourished, and in no acute distress. HEAD: Normocephalic, atraumatic. EYES: PERRLA and EOMI. ENT: Nares clear, no rhinorrhea or epistaxis. Mucous membranes moist. NECK: Supple. CHEST: Clear to auscultation. No respiratory distress. HEART: Regular rate and rhythm. No murmur heard. Normal peripheral pulses. ABDOMEN: Soft, nontender, nondistended, normal active bowel sounds. EXTREMITIES: Normal range of motion. No edema. SKIN: Warm, dry, no rash. NEURO: No focal deficits. Alert and oriented x3. PSYCH: Normal mood and affect. Course Course Emergency Course: Informed patient and his daughters about the lab work, CT findings. Had a long discussion about his medication adjustment. Also recommended him to be wheelchair bound. Advised him to follow with his primary doctor. Vital Signs Vital signs: Vital Signs Temperature 36.6 C 02/17/25 09:18 Pulse Rate 86 02/17/25 09:18 Respiratory Rate 16 02/17/25 09:18 Blood Pressure 161/96 H 02/17/25 09:18 Pulse Oximetry 98 02/17/25 09:18 Oxygen Delivery Room Air 02/17/25 09:18 Temperature 36.6 C 02/17/25 09:18 Pulse Rate 87 02/17/25 14:46 Respiratory Rate 20 02/17/25 14:46 Blood Pressure 179/111 H 02/17/25 14:46 Pulse Oximetry 98 02/17/25 14:46 Oxygen Delivery Room Air 02/17/25 09:18 MDM - Dizziness Differential Diagnosis Differential diagnosis: Likely orthostatic hypotension, vertebral basilar insufficiency and transient cerebral ischemia Medical Records Attestation: I reviewed the patient's medical records. Lab Data Attestation: I reviewed the patient's lab results. 02/17/25 11:37 02/17/25 11:37 Labs: Lab Results 02/17/25 Range/Units 11:37 WBC 8.1 (4.5-10.0) K/mm3 RBC 4.39 L (4.6-6.20) M/mm3 Hgb 13.9 L (14.0-18.0) g/dL Hct 42.1 (42.0-52.0) % MCV 95.9 (80-100) fl MCH 31.7 (26-34) pg MCHC 33.0 (32-36) g/dl RDW 13.0 (11.5-14.5) % Plt Count 211 (150-375) k/mm3 MPV 9.9 (7.4-10.4) fl Immature Gran % (Auto) 0.4 (0-0.5) % Neut % (Auto) 75.0 H (45.5-73.1) % Lymph % (Auto) 15.5 L (18.3-44.2) % [place] % (Auto) 7.3 (2.6-8.5) % Eos % (Auto) 1.1 (0-4.4) % Baso % (Auto) 0.7 (0.2-1.2) % Lymph # (Auto) 1.25 (0.9-3.2) K/mm3 [place] # (Auto) 0.6 (0.1-0.6) K/mm3 Eos # (Auto) 0.1 (0-0.3) K/mm3 Baso # (Auto) 0.1 (0.0-0.1) K/mm3 Abs Immat Gran (auto) 0.03 (0.00-0.031) K/mm3 Absolute Neuts (auto) 6.0 (1.3-6.7) K/mm3 Absolute Nucleated RBC 0.000 (0.0-0.012) K/mm3 Nucleated RBC % 0.0 (0.0-0.2) % Sodium 137 (137-145) mmol/L Potassium 4.2 (3.4-5.0) mmol/L Chloride 105 (98-107) mmol/L Carbon Dioxide 24 (22-30) mmol/L Anion Gap 8 (4-12) mmol/L BUN 18 (9-20) mg/dL Creatinine 1.06 (0.7-1.3) mg/dL Estim Creat Clear Calc 53 ml/min Estimated GFR > 60 (59 - ) Glucose 108 (65-110) mg/dL Calcium 8.7 (8.4-10.2) mg/dL Total Bilirubin 0.9 (0.2-1.3) mg/dL AST 25 (17-59) U/L ALT 9 (6-50) U/L Alkaline Phosphatase 94 (38-126) U/L Total Protein 7.6 (6.3-8.2) g/dL Albumin 4.4 (3.5-5.1) g/dL Imaging Data Radiologist's impression: ITS Impressions Chest X-Ray 02/17/25 09:58 Impression: No acute cardiopulmonary abnormality. Head CT 02/17/25 13:38 IMPRESSION: 1. No gross interval change from the January 2025 exam. Discharge Plan Discharge Clinical Impression: Orthostatic hypotension Patient Disposition: Home Condition: Stable Instructions: Hypotension (ED), Fall Prevention (ED) Additional Instructions: Continue home medication, check blood pressure twice a day. Follow-up with your primary doctor use wheelchair all the time Patient Language: Maori Prescriptions: No Action Paxlovid 300 mg (150 mg x 2)-100 mg tablets,dose pack See Rx Instructions .ROUTE .COMPLEX Qty: 30 0RF Rx Instructions: take TWO 150 mg tablets of nirmatrelvir with ONE 100 mg tablet of ritonavir twice daily for 5 days acetaminophen [Tylenol Extra Strength] 500 mg tablet 1,000 mg PO Q6H PRN (Reason: pain) Qty: 50 0RF Follow-up/Referrals: Tony,Lisandro Lino DO [Primary Care Provider, Unknown] Time of Disposition: 14:58
== END 2025-02-17 15:15 | disposition home or self-care (01) ==
PROVIDERS: Student in an Organized Health Care Education/Training Program; Emergency Provider Family Medicine; PCP Internal Medicine
DX: I95.1 Orthostatic hypotension (principal); G20.A1 Parkinson's disease without dyskinesia, without mention of fluctuations; E78.5 Hyperlipidemia, unspecified; F32.9 Major depressive disorder, single episode, unspecified; Z79.899 Other long term (current) drug therapy; R94.31 Abnormal electrocardiogram [ECG] [EKG]
CPT/HCPCS: 36415; 70450; 71046; 80053; 85025; 93005; 99284

== ENCOUNTER 2025-03-24 12:01 | Emergency (ER) | payer MEDICARE, BC, SELFPAY ==
--- OUTSIDE RECORDS SUMMARY | 2025-03-23 07:15 | XMS_ITS ---
Author Organization [facility] Address [address] [place] [id number] Care Team Providers Care Hydraulic Tester Name Role Phone Kari Rojas Primary Care Provider [phone] REASON FOR VISIT [facility]- acute hallucinations Medications Medication SIG (Take, Route, Frequency, Duration) Notes Start Date End Date Status Amantadine HCl 100 MG Tablet 1 tablet Orally Once a day Active Midodrine HCl 5 MG Tablet 1 tablet daily and Orally daily; Duration: 30 days As needed once a day IF SBP IS LOWER THAN 110 02/03/2025 Active Carbidopa-Levodopa 25-100 MG Tablet 2 tablets Orally three times a day Active Citalopram Hydrobromide 20 MG Tablet 1 tablet Orally Once a day Active Encounters Encounter Location Date Provider Diagnosis [facility] [address] [address] 03/23/2025 Kari Rojas Plan Of Treatment No Information Progress Notes * Yissel ACOSTAOB:1950 (74 yo M)Acc No.[id number]:03/23/2025 Patient: Anju Tirso gilmore Provider: REBA Farley :1950 A ge:74 Y S ex:Male Date:03/23/2025 Address:[address] [place], [place] [id number] Subjective: * Chief Complaints: * B rightly GC- acute hallucinations * Medications: T akingAmantadine HCl 100 MG Tablet 1 tablet Orally Once a day Carbidopa-Levodopa 25-100 MG Tablet 2 tablets Orally three times a day Citalopram Hydrobromide 20 MG Tablet 1 tablet Orally Once a day Midodrine HCl 5 MG Tablet 1 tablet daily and Orally daily As needed once a day IF SBP IS LOWER THAN 110Taking Amantadine HCl 100 MG Tablet 1 tablet Orally Once a day Taking Carbidopa-Levodopa 25-100 MG Tablet 2 tablets Orally three times a day Taking Citalopram Hydrobromide 20 MG Tablet 1 tablet Orally Once a day Taking Midodrine HCl 5 MG Tablet 1 tablet daily and Orally daily As needed once a day IF SBP IS LOWER THAN 110 * Electronic signature of LARA Fabian on 03/24/2025 at 05:52 PM RADIOLOGY TECHNOLOGIST Sign off status: Pending * Provider: REBA Farley Date: 05/24/2024 Generated for Bryan arshad/Marisel/Lenny on: 05/25/2024 05:52 PM RADIOLOGY TECHNOLOGIST
[2025-03-24] VITALS (25 sets, daily range): BP systolic 98–204; BP diastolic 76–117; PULSE 75–114; RESP 12–24; TEMP 36.3–36.8; O2SAT 96–100
--- NOTE | ~2025-03-24 | CT_ITS ---
EXAMINATION: CT chest, abdomen and pelvis with contrast: DATE: 03/24/2025 INDICATION: 74-year-old assess source of infection. TECHNIQUE: CT through chest, abdomen and pelvis was performed with 100 cc of IV contrast and reviewed in multiple projections. COMPARISON: Chest x-ray dated 03/24/2025 FINDINGS: No acute pulmonary findings of focal nature. No lymphadenopathy or effusion. Severe coronary artery calcification of left main and anterior descending coronary arteries. Below the diaphragm, no focal abnormalities of the liver and spleen. Gallbladder is mildly distended in size without calcified stones or edema. Pancreas shows no acute findings. No evidence of small bowel obstruction. Kidneys do not show calculi or obstruction. Significant calcific atherosclerotic changes of abdominal aorta including origin of celiac axis and superior mesenteric artery. No inflammatory changes in the pelvis. Fecal impaction of the rectum. Evaluation of pelvis is significantly Limited by artifacts from bilateral hip arthroplasty. Severe degenerative disc disease in the lower lumbar spine with this degree anterolisthesis of L5 on S1. IMPRESSION: 1. No acute pulmonary findings in the chest. Severe coronary artery calcification of left main and anterior descending coronary arteries. 2. No definite acute findings in the upper abdomen and pelvis. Nonspecific, mildly distended gallbladder without edema or calcified stones. 3 fecal impaction of the colon particularly rectum. 4. Atherosclerotic changes of abdominal aorta and branches including proximal superior mesenteric artery and celiac axis and iliac arteries. 5. Severe degenerative disc changes of lumbar spine with minimal anterolisthesis at L5-S1 level. Reviewed, dictated and finalized at location T. COLLECTOR IMPRESSION: 1. No acute pulmonary findings in the chest. Severe coronary artery calcificati on of left main and anterior descending coronary arteries. 2. No definite acute findings in the upper abdomen and pelvis. Nonspecific, mil dly distended gallbladder without edema or calcified stones. 3 fecal impaction of the colon particularly rectum. 4. Atherosclerotic changes of abdominal aorta and branches including proximal s uperior mesenteric artery and celiac axis and iliac arteries. 5. Severe degenerative disc changes of lumbar spine with minimal anterolisthesi s at L5-S1 level.
--- NOTE | ~2025-03-24 | CT_ITS ---
EXAMINATION: CT brain wo con DATE: 03/24/2025 15:27 INDICATION: Altered mental status. Hallucinations. TECHNIQUE: Computed tomography (CT) of the head was performed without intravenous contrast. The mA was adjusted according to patient size. Iterative reconstruction technique was employed. The dose-length product was 605.33 mGy-cm. COMPARISON: CT head dated 02/17/2025 FINDINGS: No acute intracranial bleed. No ventriculomegaly or midline shift. Stable old lacunar infarct of the left basal ganglia. No acute bone changes. Calcification of basal ganglia are also unchanged from prior studies. IMPRESSION: 1. No acute intracranial findings. Chronic changes as described above similar to multiple prior studies. Reviewed, dictated and finalized at location T. Y I PAINTER IMPRESSION: 1. No acute intracranial findings. Chronic changes as described above similar t o multiple prior studies.
--- NOTE | ~2025-03-24 | XR_ITS ---
EXAMINATION: XR chest 2V, 03/24/2025 15:35 ENROBER HISTORY: ams COMPARISON: No comparisons available. Technique: 2 views obtained. Findings: The lungs are clear, no effusion. No pneumothorax. Heart is normal size. Mediastinal and hilar contours are within normal limits. Bony thorax no acute abnormality. Impression: No acute cardiopulmonary abnormality. Reviewed, dictated and finalized at location P. BER Impression: No acute cardiopulmonary abnormality.
--- NOTE | 2025-03-24 14:45 | ED_ITS ---
HPI - Altered Mental Status General Chief Complaint: Altered Mental Status <Lisa Chapman PA-C - Last Filed: 04/03/25 09:08> Stated Complaint: confusion, x2days, random hallucinations <RAYA Lopez Last Filed: 04/03/25 09:08> Time Seen by Provider: 03/24/25 14:45 <RAYA Lopez Last Filed: 04/03/25 09:08> Focused HPI: Patient is a 74 y/o male, with PMH of Parkinson's disease, presents the ED with report of altered mental status. Patient is a resident of [facility]. Son at bedside secretary administrative assistant providing information. Reports patient has had visual and auditory hallucinations over the past 1 week. Has had a fairly rapid mental decline over the past week. Son reports recent issues with orthostatic hypotension. Patient denies focal weakness. No recent fever/cough. GENERAL: Well-appearing, well-nourished, and in no acute distress. HEAD: Normocephalic, atraumatic. CHEST: Clear to auscultation. ?No respiratory distress. HEART: Regular rate and rhythm.? NEURO: ?Alert and oriented x3. No focal deficits. No pronator drift. Strength 5 of 5 in upper and lower extremities bilaterally. Equal custom home installer strength bilaterally. Patient screened in triage and initial orders placed.? ?Additional care and disposition to be based upon?diagnostic testing and treatment. <Lisa Chapman PA-C - Last Filed: 04/03/25 09:08> Source: patient and family <RAYA Lopez Last Filed: 04/03/25 09:08> Mode of arrival: EMS <RAYA Lopez Last Filed: 04/03/25 09:08> Limitations: no limitations <RAYA Lopez Last Filed: 04/03/25 09:08> History of Present Illness HPI narrative: Agree with above HPI. <KAROL Vale Last Filed: 04/03/25 18:12> Related Data Allergies/Adverse Reactions: Allergies Allergy/AdvReac Type Severity Reaction Status Date / Time meperidine (From Madinal) Allergy Nausea and Verified 03/24/25 12:03 Vomiting <Lisa Chapman PA-C - Last Filed: 04/03/25 09:08> Review of Systems 2 Review of Systems: All systems reviewed & are unremarkable except as noted in HPI and below <KAROL Vale Last Filed: 04/03/25 18:12> [facility] Past Medical History Medical History: Medical History Orthostatic hypotension Hyperlipidemia Major depressive disorder Dysphagia Parkinsons disease <Lisa Chapman PA-C - Last Filed: 04/03/25 09:08> Exam 2 Narrative: GENERAL: No acute distress. HEAD: Normocephalic, atraumatic. EYES: PERRLA and EOMI. ENT: Nares clear, no rhinorrhea or epistaxis. Mucous membranes moist. Oropharynx without tonsillar hypertrophy exudate or other lesions. Bilateral TMs pearly kiser non-bulging NECK: Supple. No adenopathy or masses. No carotid bruits or JVD CHEST: Clear to auscultation. No respiratory distress. No wheezes rales or rhonchi HEART: Regular rate and rhythm. No murmur heard. Normal peripheral pulses. ABDOMEN: Soft, nontender, nondistended, normal active bowel sounds. EXTREMITIES: Normal range of motion. No edema. SKIN: Warm, dry, no rash. NEURO: No focal deficits. Alert and oriented x3. PSYCH: Normal mood and affect <KAROL Vale Last Filed: 04/03/25 18:12> Course Vital Signs Vital signs: Vital Signs Temperature 98.3 F 03/24/25 12:05 Pulse Rate 79 03/24/25 12:05 Respiratory Rate 15 03/24/25 12:05 Blood Pressure 148/86 H 03/24/25 12:05 Pulse Oximetry 99 03/24/25 12:05 Oxygen Delivery Room Air 03/24/25 12:05 Temperature 98 F 03/24/25 21:16 Pulse Rate 102 H 03/24/25 22:16 Respiratory Rate 14 03/24/25 22:16 Blood Pressure 138/76 03/24/25 22:16 Pulse Oximetry 100 03/24/25 22:16 Oxygen Delivery Room Air 03/24/25 12:05 <Lisa Chapman PA-C - Last Filed: 04/03/25 09:08> Vital Signs Temperature 98.3 F 03/24/25 12:05 Pulse Rate 79 03/24/25 12:05 Respiratory Rate 15 03/24/25 12:05 Blood Pressure 148/86 H 03/24/25 12:05 Pulse Oximetry 99 03/24/25 12:05 Oxygen Delivery Room Air 03/24/25 12:05 Temperature 98 F 03/24/25 21:16 Pulse Rate 102 H 03/24/25 22:16 Respiratory Rate 14 03/24/25 22:16 Blood Pressure 138/76 03/24/25 22:16 Pulse Oximetry 100 03/24/25 22:16 Oxygen Delivery Room Air 03/24/25 12:05 <KAROL Vale Last Filed: 04/03/25 18:12> MDM MDM Narrative Medical decision making narrative: MSE by CHUCKY in triage <Lisa Chapman PA-C - Last Filed: 04/03/25 09:08> MSE by CHUCKY in triage Patient is a 74 y/o male, with PMH of Parkinson's disease, presents the ED with report of altered mental status. Patient is a resident of [facility]. Son at bedside secretary administrative assistant providing information. Reports patient has had visual and auditory hallucinations over the past 1 week. Has had a fairly rapid mental decline over the past week. Son reports recent issues with orthostatic hypotension. Patient denies focal weakness. No recent fever/cough. Upon my initial assessment patient appears worried but is nontoxic with stable vitals. Labs and imaging within normal limits. No focal neurological deficits on exam. Patient denies hallucination presently as well as SI/HI. Differential diagnosis and treatment plan were discussed with the patient. Patient agrees with discussion and after shared medical decision making agrees with plan of care. All questions were answered to the patient's satisfaction. The patient is appropriate for outpatient treatment and follow-up. Given reasons to return. <KAROL Vale Last Filed: 04/03/25 18:12> Differential Diagnosis Differential Diagnosis: Hallucinations, psychosis, UTI, altered mental status, CVA, dementia < Lisa Chapman PA-C - Last Filed: 04/03/25 09:08> Medical Records I have reviewed the following patient records and this information was taken into consideration when formulating the assessment and plan.: previous labs and previous ER visits <KAROL Vale - Last Filed: 04/03/25 18:12> Lab Data MDM Lab Attestation statement: I personally reviewed the patient's lab results. <KAROL Vale Last Filed: 04/03/25 18:12> Result diagrams: 03/24/25 14:59 03/24/25 14:59 <Lisa Chapman PA-C - Last Filed: 04/03/25 09:08> Labs: Lab Results 03/24/25 03/24/25 Range/Units 14:59 18:34 WBC 9.5 (4.5-10.0) K/mm3 RBC 4.17 L (4.6-6.20) M/mm3 Hgb 13.1 L (14.0-18.0) g/dL Hct 41.2 L (42.0-52.0) % MCV 98.8 (80-100) fl MCH 31.4 (26-34) pg MCHC 31.8 L (32-36) g/dl RDW 12.8 (11.5-14.5) % Plt Count 247 (150-375) k/mm3 MPV 9.9 (7.4-10.4) fl Immature Gran % (Auto) 0.4 (0-0.5) % Neut % (Auto) 71.7 (45.5-73.1) % Lymph % (Auto) 17.1 L (18.3-44.2) % [place] % (Auto) 8.1 (2.6-8.5) % Eos % (Auto) 2.2 (0-4.4) % Baso % (Auto) 0.5 (0.2-1.2) % Lymph # (Auto) 1.62 (0.9-3.2) K/mm3 [place] # (Auto) 0.8 H (0.1-0.6) K/mm3 Eos # (Auto) 0.2 (0-0.3) K/mm3 Baso # (Auto) 0.1 (0.0-0.1) K/mm3 Abs Immat Gran (auto) 0.04 H (0.00-0.031) K/mm3 Absolute Neuts (auto) 6.8 H (1.3-6.7) K/mm3 Absolute Nucleated RBC 0.000 (0.0-0.012) K/mm3 Nucleated RBC % 0.0 (0.0-0.2) % PT 14.4 (11.1-14.7) Seconds INR 1.1 APTT 26.9 (22.3-36.8) Seconds Sodium 140 (137-145) mmol/L Potassium 4.5 (3.4-5.0) mmol/L Chloride 108 H (98-107) mmol/L Carbon Dioxide 25 (22-30) mmol/L Anion Gap 7 (4-12) mmol/L BUN 31 H D (9-20) mg/dL Creatinine 1.30 (0.7-1.3) mg/dL Estim Creat Clear Calc 44 ml/min Estimated GFR 54 L (59 - ) Glucose 106 (65-110) mg/dL Lactic Acid 1.4 (0.7-2.0) mmol/L Calcium 9.1 (8.4-10.2) mg/dL Total Bilirubin 0.7 (0.2-1.3) mg/dL AST 39 (17-59) U/L ALT 9 (6-50) U/L Alkaline Phosphatase 105 (38-126) U/L Total Protein 8.2 (6.3-8.2) g/dL Albumin 4.5 (3.5-5.1) g/dL Urine Color Yellow (Yellow) Urine Appearance Clear (Clear) Urine pH 5.5 (5.0-9.0) Ur Specific [place] 1.022 (1.001-1.035) Urine Protein Trace (Negative) mg/dL Urine Glucose (UA) Negative (Negative) mg/dL Urine Ketones 1+ H (Negative) mg/dL Ur Blood (Man) Negative (Negative) Urine Nitrate Negative (Negative) Urine Bilirubin Negative (Negative) Urine Urobilinogen 1.0 (<2.0) mg/dL Leukocyte Esterase Rfl Negative (Negative) FABY/UL Urine RBC 0-2 (0-2) /hpf Urine WBC 0-5 (0-3) /hpf Ur Squamous Epith Cells None seen (Few) /hpf Urine Bacteria None seen /hpf Urine Casts 0-2 <Lisa Chapman PA-C - Last Filed: 04/03/25 09:08> Lab Results 03/24/25 03/24/25 Range/Units 14:59 18:34 WBC 9.5 (4.5-10.0) K/mm3 RBC 4.17 L (4.6-6.20) M/mm3 Hgb 13.1 L (14.0-18.0) g/dL Hct 41.2 L (42.0-52.0) % MCV 98.8 (80-100) fl MCH 31.4 (26-34) pg MCHC 31.8 L (32-36) g/dl RDW 12.8 (11.5-14.5) % Plt Count 247 (150-375) k/mm3 MPV 9.9 (7.4-10.4) fl Immature Gran % (Auto) 0.4 (0-0.5) % Neut % (Auto) 71.7 (45.5-73.1) % Lymph % (Auto) 17.1 L (18.3-44.2) % [place] % (Auto) 8.1 (2.6-8.5) % Eos % (Auto) 2.2 (0-4.4) % Baso % (Auto) 0.5 (0.2-1.2) % Lymph # (Auto) 1.62 (0.9-3.2) K/mm3 [place] # (Auto) 0.8 H (0.1-0.6) K/mm3 Eos # (Auto) 0.2 (0-0.3) K/mm3 Baso # (Auto) 0.1 (0.0-0.1) K/mm3 Abs Immat Gran (auto) 0.04 H (0.00-0.031) K/mm3 Absolute Neuts (auto) 6.8 H (1.3-6.7) K/mm3 Absolute Nucleated RBC 0.000 (0.0-0.012) K/mm3 Nucleated RBC % 0.0 (0.0-0.2) % PT 14.4 (11.1-14.7) Seconds INR 1.1 APTT 26.9 (22.3-36.8) Seconds Sodium 140 (137-145) mmol/L Potassium 4.5 (3.4-5.0) mmol/L Chloride 108 H (98-107) mmol/L Carbon Dioxide 25 (22-30) mmol/L Anion Gap 7 (4-12) mmol/L BUN 31 H D (9-20) mg/dL Creatinine 1.30 (0.7-1.3) mg/dL Estim Creat Clear Calc 44 ml/min Estimated GFR 54 L (59 - ) Glucose 106 (65-110) mg/dL Lactic Acid 1.4 (0.7-2.0) mmol/L Calcium 9.1 (8.4-10.2) mg/dL Total Bilirubin 0.7 (0.2-1.3) mg/dL AST 39 (17-59) U/L ALT 9 (6-50) U/L Alkaline Phosphatase 105 (38-126) U/L Total Protein 8.2 (6.3-8.2) g/dL Albumin 4.5 (3.5-5.1) g/dL Urine Color Yellow (Yellow) Urine Appearance Clear (Clear) Urine pH 5.5 (5.0-9.0) Ur Specific [place] 1.022 (1.001-1.035) Urine Protein Trace (Negative) mg/dL Urine Glucose (UA) Negative (Negative) mg/dL Urine Ketones 1+ H (Negative) mg/dL Ur Blood (Man) Negative (Negative) Urine Nitrate Negative (Negative) Urine Bilirubin Negative (Negative) Urine Urobilinogen 1.0 (<2.0) mg/dL Leukocyte Esterase Rfl Negative (Negative) FABY/UL Urine RBC 0-2 (0-2) /hpf Urine WBC 0-5 (0-3) /hpf Ur Squamous Epith Cells None seen (Few) /hpf Urine Bacteria None seen /hpf Urine Casts 0-2 <KAROL Vale - Last Filed: 04/03/25 18:12> Imaging Data Attestation: I personally reviewed and interpreted this imaging study as follows: < KAROL Vale - Last Filed: 04/03/25 18:12> Radiologist's impression: ITS Impressions Head CT 03/24/25 15:28 IMPRESSION: 1. No acute intracranial findings. Chronic changes as described above similar to multiple prior studies. Chest X-Ray 03/24/25 15:42 Impression: No acute cardiopulmonary abnormality. Chest/Abdomen/Pelvis CT 03/24/25 18:31 IMPRESSION: 1. No acute pulmonary findings in the chest. Severe coronary artery calcification of left main and anterior descending coronary arteries. 2. No definite acute findings in the upper abdomen and pelvis. Nonspecific, mildly distended gallbladder without edema or calcified stones. 3 fecal impaction of the colon particularly rectum. 4. Atherosclerotic changes of abdominal aorta and branches including proximal superior mesenteric artery and celiac axis and iliac arteries. 5. Severe degenerative disc changes of lumbar spine with minimal anterolisthesis at L5-S1 level. <RAYA Lopez Last Filed: 04/03/25 09:08> ITS Impressions Head CT 03/24/25 15:28 IMPRESSION: 1. No acute intracranial findings. Chronic changes as described above similar to multiple prior studies. Chest X-Ray 03/24/25 15:42 Impression: No acute cardiopulmonary abnormality. Chest/Abdomen/Pelvis CT 03/24/25 18:31 IMPRESSION: 1. No acute pulmonary findings in the chest. Severe coronary artery calcification of left main and anterior descending coronary arteries. 2. No definite acute findings in the upper abdomen and pelvis. Nonspecific, mildly distended gallbladder without edema or calcified stones. 3 fecal impaction of the colon particularly rectum. 4. Atherosclerotic changes of abdominal aorta and branches including proximal superior mesenteric artery and celiac axis and iliac arteries. 5. Severe degenerative disc changes of lumbar spine with minimal anterolisthesis at L5-S1 level. <KAROL Vale Last Filed: 04/03/25 18:12> Discharge Plan Discharge Clinical Impression: Parkinson disease, Hallucinations, Hypertension, uncontrolled <RAYA Lopez Last Filed: 04/03/25 09:08> Patient Disposition: Home <RAYA Lopez Last Filed: 04/03/25 09:08> Condition: Stable <RAYA Lopez Last Filed: 04/03/25 09:08> Instructions: Parkinson Disease (ED), Hypertension (ED), Hallucinations (ED) <Lisa Chapman PA-C - Last Filed: 04/03/25 09:08> Additional Instructions: Return to the emergency department if you experience fever, chest pain, shortness of breath, abdominal pain with nausea and vomiting, weakness, numbness/tingling, or any other symptoms that are concerning to you. Follow up with primary care doctor for further Parkinson's disease management and any other general concerns. <RAYA Lopez Last Filed: 04/03/25 09:08> Patient Language: Ivorian <RAYA Lopez Last Filed: 04/03/25 09:08> Prescriptions: No Action Paxlovid 300 mg (150 mg x 2)-100 mg tablets,dose pack See Rx Instructions .ROUTE .COMPLEX Qty: 30 0RF Rx Instructions: take TWO 150 mg tablets of nirmatrelvir with ONE 100 mg tablet of ritonavir twice daily for 5 days acetaminophen [Tylenol Extra Strength] 500 mg tablet 1,000 mg PO Q6H PRN (Reason: pain) Qty: 50 0RF <RAYA Lopez Last Filed: 04/03/25 09:08> Follow-up/Referrals: Tony,Lisandro Lino DO [Primary Care Provider, Unknown] <RAYA Lopez Last Filed: 04/03/25 09:08>
--- NOTE | 2025-03-24 14:48 | ECG_ITS ---
Test Date: 2025-03-24 16:45:12 Measurements Intervals [place] Rate: 75 P: 46 RI: 172 QRS: 30 QRSD: 96 T: 46 QT: 393 QTc: 440 Interpretive Statements SINUS RHYTHM BASELINE ARTIFACT- I, II, AVR, AVL, AVF, V1-V3 NORMAL ECG Compared to ECG 02/17/2025 09:35:55 NO SIGNIFICANT CHANGE Electronically Signed On 03-24-2025 18:55:32 [employer] by Dale Willis D.O.
[2025-03-24 15:10] LABS: Hematocrit 41.2 % (42.0-52.0); Hemoglobin 13.1 g/dL (14.0-18.0); Immature Granulocyte Percent A 0.4 % (0-0.5); Lymphocytes Absolute Auto 1.62 K/mm3 (0.9-3.2); Mean Corpuscular HGB Conc 31.8 g/dl (32-36); Mean Corpuscular Hemoglobin 31.4 pg (26-34); Mean Corpuscular Volume 98.8 fl (80-100); Nucleated Red Blood Cells Absolute Auto 0.000 K/mm3 (0.0-0.012); Nucleated Red Blood Cells Perc 0.0 % (0.0-0.2); Platelet Count Result 247 k/mm3 (150-375); Red Blood Count 4.17 M/mm3 (4.6-6.20); White Blood Count 9.5 K/mm3 (4.5-10.0)
[2025-03-24 15:21] LABS: INR 1.1; Prothrombin Time 14.4 Seconds (11.1-14.7)
[2025-03-24 15:22] LABS: Alanine Aminotransferase 9 U/L (6-50); Albumin Level 4.5 g/dL (3.5-5.1); Alkaline Phosphatase 105 U/L (38-126); Anion Gap 7 mmol/L (4-12); Aspartate Amino Transferase 39 U/L (17-59); Bilirubin,Total 0.7 mg/dL (0.2-1.3); Blood Urea Nitrogen 31 mg/dL (9-20); Calcium 9.1 mg/dL (8.4-10.2); Carbon Dioxide 25 mmol/L (22-30); Chloride 108 mmol/L (98-107); Estimated CRCL calculation 44 ml/min; Estimated Glomerular Filt Rate 54; Glucose 106 mg/dL (65-110); Partial Thromboplastin Time 26.9 Seconds (22.3-36.8); Potassium 4.5 mmol/L (3.4-5.0); Sodium 140 mmol/L (137-145); Total Protein 8.2 g/dL (6.3-8.2)
--- NOTE | 2025-03-24 17:35 | PC.NURSE ---
Gave update to Brightly on pts status.
--- OUTSIDE RECORDS SUMMARY | 2025-03-24 17:52 | XMS_ITS | Patient Health Record ---
Author Organization [facility] Address [address] [id number] Care Team Providers Care Transit Mixer Operator Name Role Phone Kari Rojas Primary Care Provider [phone] MANFRED CLARK Unavailable [phone] Allergies Allergen (clinical drug ingredient) Drug/Non Drug Allergy documented on EMR Reaction Allergy Type Onset Date Status meperidine Demerol Unknown Drug Allergy Active Results Component Value Reference Range Notes X ray : Knee, right 2 views Reviewed date:02/14/2025 03:23:27 PM Interpretation: Performing Lab: Notes/Report: Hemoglobin A1c Reviewed date:09/02/2024 11:05:27 AM Interpretation: Performing Lab: Notes/Report: Basic Metabolic Panel (8) Reviewed date:09/02/2024 11:05:16 AM Interpretation: Performing Lab: Notes/Report: CBC Reviewed date:09/02/2024 11:05:05 AM Interpretation: Performing Lab: Notes/Report: Reason For Referral Reason Hospital bed Diagnosis 1 Abdominal rigidity, unspecified site (R19.30) Diagnosis 2 Bed confinement stat us (Z74.01) Diagnosis 3 Parkinson's disease without dyskinesia or fluctuating manifestations (G20.A1) Diagnosis 4 Pain (R52) Referral Organization [facility] Referring Provider First Name Kari Referring Provider Last Name Bob Referred Organization [facility] Referred Address [address] [place],[address],[place] Referred Provider Specialty DME Referral Priority Routine Reason Blood Pressure issue s Diagnosis 1 Hypotension, unspeci fied (I95.9) Referral Organization [facility] Referring Provider First Name Kari Referring Provider Last Name Bob Referred Organization [facility] Referred Address [address] [place], [place],[address],[place] Referred Provider Specialty Cardiology Referral Priority Routine Medications Medication SIG (Take, Route, Frequency, Duration) [...] tablets Orally three times a day Active Melatonin 10 MG Tablet 1 tablet Orally d aily; Duration: 30 days 03/24/2025 Active Citalopram Hydrobromide 20 MG Tablet 1 tablet Orally Once a day Active Immunizations Vaccine Route Administration [...] W/U Status Risk Notes Problem Mixed hyperlipidemia (428820901) Mixed hyperlipidemia (E78.2) Active confirmed Problem Hyperlipidemia (90877806) Hyperlipidemia, unspecified (E78.5) Active confirmed Problem Oral phase dysphagia (872431445) Dysphagia, oral phase (R13.11) Active confirmed Problem Parkinson's disease (disorder) (44012191) Parkinson's disease without dyskinesia or fluctuating manifestations (G20.A1) Active confirmed Problem Depressive disorder (43523945) Depressive disorder (F32.A) Active confirmed Vital Signs Heart Rate 85 /min 02/23/2025 Temperature 97.4 degrees Fahrenheit 02/09/2025 Respiratory Rate 18 /min 02/23/2025 Oximetry 96 % 02/23/2025 Blood pressure diastolic 64 mm Hg 02/23/2025 Blood pressure systolic 124 mm Hg 02/23/2025 Encounters Encounter Location Date Provider Diagnosis [facility] [place] [address] [place] [address] 03/23/2025 Kari Rojas [facility] [place] [address] [place] [address] 05/26/2024 [facility] Parkinson's disease without dyskinesia or fluctuating manifestations G20.A1 ; Orthostatic hypotension I95.1 ; Hyperlipidemia, unspecified E78.5 and Depressive disorder F32.A [facility] [place] [address] [place] [address] 08/18/2024 [facility] Parkinson's disease without dyskinesia or fluctuating manifestations G20.A1 ; Hyperlipidemia, unspecified E78.5 and Depressive disorder F32.A [facility] [place] [address] [place] [address] 11/17/2024 [facility] Parkinson's disease without dyskinesia or fluctuating manifestations G20.A1 ; Hyperlipidemia, unspecified E78.5 and Depressive disorder F32.A [facility] [place] [address] [place] [address] 02/09/2025 Kari Davis Syncope and collapse R55 [facility] [place] [address] [place] [address] 02/23/2025 [facility] Parkinson's disease without dyskinesia or fluctuating manifestations G20.A1 ; Hyperlipidemia, unspecified E78.5 ; Depressive disorder F32.A and Orthostatic hypotension I95.1 [facility] [place] [address] [place] [address] 05/26/2024 Kari Davis [facility] [place] [address] [place] [address] 08/18/2024 Kari Bob [facility] [place] [address] [place] [address] 10/19/2024 MANFRED CLARK [facility] [place] [address] [place] [address] 10/27/2024 Kariflo Rojas [facility] [address] [phone] 10/27/2024 MANFRED CLARK [facility] [place] [address] [place] [address] 10/28/2024 MANFRED CLARK [facility] [place] [address] [place] [address] 10/28/2024 MANFRED CLARK [facility] [place] [address] [place] [address] 11/17/2024 Kari Rojas [facility] [place] [address] [place] [address] 11/29/2024 Kari Rojas [facility] [address] [phone] 12/13/2024 MANFRED CLARK [facility] [place] [address] [place] [address] 12/14/2024 MANFRED CLRAK [facility] [address], [place] [phone] 01/10/2025 Kari Rojas [facility] [place] [address] [place] [address] 02/01/2025 MANFRED CLARK [facility] [place] [address] [place] [address] 02/02/2025 Kari Rojas [facility] [place] [address] [place] [address] 02/03/2025 MANFRED CLARK [facility] [place] [address] [place] [address] 02/03/2025 Kari Rojas [facility] [place] [address] [place] [address] 02/05/2025 Kari Rojas [facility] [address] [id number] 02/09/2025 Kari Rojas [facility] [place] [address] [place] [address] 02/10/2025 Kari Rojas [facility] [place] [address] [place] [address] 02/17/2025 Kari Rojas [facility] [place] [address] [place] [address] 02/17/2025 Kari Rojas [facility] [place] [address] [place] [address] 02/22/2025 Kari Rojas [facility] [address], [place] [phone] 02/23/2025 Kari Rojas [facility] [address] [id number] 02/24/2025 Kari Rojas [facility] [place] [address] [place] [address] 02/27/2025 Kari Rojas [facility] [place] [address] [place] [address] 03/06/2025 Kari Rojas [facility] [place] [address] [place] [address] 03/12/2025 Kari Rojas [facility] [place] [address] [place] [address] 03/17/2025 Kari Rojas [facility] [place] [address] [place] [address] 03/22/2025 Kari Rojas [facility] [place] [address] [place] [address] 03/24/2025 Kari Rojas Assessments Encounter Date Diagnosis (ICD Code) Assessment Notes Treatment Notes Treatment Clinical Notes Section Notes 05/26/2024 Parkinson's disease without dyskinesia or fluctuating [...] for any problems. Lacerationis looking very well. 02/23/2025 Parkinson's disease without dyskinesia or fluctuating manifestations (ICD-10 - G20.A1) Patient is followed by neurology. Denies tremor. Symptoms well controlled with current dose of carbidopa-levodop a. Continue current treatment plan and monitoring. Due to patients advancing parkinson's symptoms, and having trouble getting in and out of bed due to rigidtiy, patient and family request a hospital bed to help with positioning and safety of the patient. A hospital bed would help the patient to stay more independent as well. The beneficiary requires positioning of the body in ways not feasible with an ordinary bed in order to remain safe. 11/17/2024 Parkinson's disease without dyskinesia or fluctuating [...] dose statin. Denies adverse signs or symptoms. 02/23/2025 Hyperlipidemia, unspecified (ICD-10 - E78.5) Last lipid panel 02/25/24 stable. Triglycerides WNL (88), HDL WNL (52), and LDL WNL (76). Currently taking low dose statin. Denies adverse signs or symptoms. 08/18/2024 Depressive disorder (ICD-10 - F32.A) Stable. Denies symptoms at this time. Pleasant and cooperative during visit. Currently taking citalopram. Continue current treatment plan and monitoring. 05/26/2024 Orthostatic hypotension (ICD-10 - I95.1) BP well controlled and trending at goal. Continue current treatment plan and monitoring. 05/26/2024 Hyperlipidemia, unspecified (ICD-10 - E78.5) Last lipid panel 02/25/24 stable. Triglycerides WNL (88), HDL WNL (52), and LDL WNL (76). Currently taking low dose statin. Denies adverse signs or symptoms. 02/23/2025 Orthostatic hypotension (ICD-10 - I95.1) Patient has been having orthostatic hypotension and which is attributed to his advancing Parkinson's disease. He is followed by neurology. He was seen in the emergency room due to another fall on 02/17/2025. No injuries were found, but patient was advised to use a wheelchair at all times due to his safety. Patient's family is possibly going to get him a electric wheelchair for his independence so he will be able to continue doing activities that he normally does. 11/17/2024 Depressive disorder (ICD-10 - F32.A) Stable. Denies symptoms at this time. Pleasant and cooperative during visit. Currently taking citalopram. Continue current treatment plan and monitoring. 02/23/2025 Depressive disorder (ICD-10 - F32.A) Stable. Denies symptoms at this time. Pleasant and cooperative during visit. Currently taking citalopram. Continue current treatment plan and monitoring. 05/26/2024 Depressive disorder (ICD-10 - F32.A) Stable. Denies symptoms at this time. Pleasant and cooperative during visit. Currently taking citalopram. Continue current treatment plan and monitoring. 05/26/2024 Other Continue current treatment plan. Staff [...] BMP, and A1C on next lab day. 02/23/2025 Other Continue current treatment plan. Staff to continue to monitor and report any changes. Patient education provided and questions/concern s addressed. Follow up in three months unless necessary sooner. 02/09/2025 Other Continue current treatment plan. Staff to continue to monitor and report any changes. Patient education provided and questions/concern s addressed. Follow up in 3 months unless necessary sooner. Plan Of Treatment No Information Insurance Providers Payer Name Payer Address Payer Phone Subscriber Number Group Number Insured Name Patient Relationship to Insured Coverage Start Date Coverage End Date [place] [address] [place] [address] [id number] 1 Tirso Acosta Self - patient is the insured [employer] of [place] [address] [facility] [id number] [phone] [id number] Tirso Acosta Self - patient is the insured Medical (General) History Medical History History ICD Code Parkinsonism, unspecified G20.C Dysphagia, oral phase R13.11 Major depressive disorder, single episod e, unspecified F32.9 Hyperlipidemia, unspecified E78.5 Orthostatic hypotension I95.1 Surgical History Surgery Date(Month/Year) PARTIAL HIP REPLACEMENT TOTAL KNEE ARTHROPLASTY
--- NOTE | 2025-03-24 18:41 | PC.NURSE ---
This RN approached KAROL Bell about pts blood pressure reading of 198/107. This RN stated the pt had multiple readings of 200s/110s. DERRELL Bell stated, his blood pressure was fine when he came in and we scanned his head. DERRELL Bell asked if pt was complaining of any symptoms, pt has no complaints at this time.
[2025-03-24 19:01] LABS: Add Urine Microscopic? YES; Appearance Urine Clear (Clear); Glucose Urine UA Negative (Negative); Leukocyte Esterase Ur Negative LEU/UL (Negative); Nitrate Urine Negative (Negative); Non Pathogenic Casts 0-2; Specific Grav Ur 1.022 (1.001-1.035)
[2025-03-24] MEDS: SODIUM CHLORIDE 0.9% IV 500 ML 999 ML IV CONT (20:28)
--- NOTE | 2025-03-24 20:31 | PC.NURSE ---
Per KAROL Mendez, hold on Hydralazine until after fluids and pt is re-evaluated.
[2025-03-24] MEDS: hydrALAZINE 5 MG TABLET PO (21:31)
--- NOTE | 2025-03-24 22:15 | PC.NURSE ---
This RN called [facility] and talked to Sahra.
== END 2025-03-24 22:18 | disposition home or self-care (01) ==
PROVIDERS: Physician Assistant; PCP Internal Medicine
DX: G20.A1 Parkinson's disease without dyskinesia, without mention of fluctuations (principal); I10 Essential (primary) hypertension; R44.1 Visual hallucinations; R44.0 Auditory hallucinations; E78.5 Hyperlipidemia, unspecified; F32.9 Major depressive disorder, single episode, unspecified
CPT/HCPCS: 36415; 70450; 71046; 71260; 74177; 80053; 81001; 83605; 85025; 85610; 85730; 93005; 99284; A9270; J7040; Q9967

== ENCOUNTER 2025-04-11 08:25 | Emergency (ER) | payer MEDICARE, BC, SELFPAY ==
--- NOTE | ~2025-04-11 | CT_ITS ---
CT HEAD NON-CONTRAST CT C-SPINE Clinical History: fall Comparison: CT head 03/24/2025 CT C-spine 02/03/2025 Technique: Unenhanced axial images skull base to vertex. Coronal, sagittal reformats. Axial images thoracic inlet to skull base. Sagittal and coronal reformats. CT images acquired with automatic exposure control for dose reduction DLP: 605 mGy-cm Findings: Head: Mild age-related atrophy. Basal ganglia lacunae. Chronic white matter microvascular ischemic changes. Patient with a Sulci, ventricles: Unremarkable. No intracerebral hemorrhage. No evidence acute territorial infarct. No mass effect, midline shift, intra-/extra-axial fluid collection. Bony calvarium intact. Visualized paranasal sinuses: Clear. Mastoid air cells: Clear. C-spine: No acute fracture. Grade 1 anterolisthesis C7 on T1. Vertebral bodies normal height and alignment. Moderate degenerative changes and disc disease. Prevertebral soft tissues within normal limits. Visualized lung apices: Clear. Visualized thyroid: Unremarkable. No enlarged cervical nodes. IMPRESSION: HEAD: 1. No acute intracranial findings. C-SPINE: 1. No acute fracture. Reviewed, dictated and finalized at location R. [facility] [facility] IMPRESSION: HEAD: 1. No acute intracranial findings. C-SPINE: 1. No acute fracture.
--- NOTE | ~2025-04-11 | CT_ITS ---
EXAMINATION: CT pelvis wo con DATE: 04/11/2025 09:13 INDICATION: Trauma. TECHNIQUE: Computed tomography (CT) of the pelvis was performed without intravenous contrast. The dose-length product was 436.67 mGy-cm. Automated exposure control and iterative reconstruction technique were employed. COMPARISON: CT dated 03/24/2025 FINDINGS: There are bilateral hip arthroplasties. The distal aspect of the femoral prosthesis not visualized. There is severe lower lumbar spondylosis. There is extensive scarring of the kidneys with bilateral renal cysts. No acute fracture or traumatic malalignment. Pelvic rings appear to be intact. No acute sacral fracture. No significant soft tissue abnormality. Moderate colonic fecal loading. No evidence for hernia. IMPRESSION: 1. No acute abnormality of the pelvis. Reviewed, dictated and finalized at location O. [employer] WORKER
--- NOTE | ~2025-04-11 | CT_ITS ---
EXAMINATION: CT thoracic lumbar wo con DATE: 04/11/2025 09:13 INDICATION: Trauma. TECHNIQUE: Computed tomography (CT) of the thoracic and lumbar spine was performed without intravenous contrast. Automated exposure control and iterative reconstruction technique were employed. The dose-length product was 436.67 mGy-cm. COMPARISON: CT 03/24/2025 FINDINGS: CT THORACIC SPINE: There is kyphosis of thoracic spine. There is 3 mm anterolisthesis of T1 on T2 and T3 on T4. There is mild chronic anterior wedging of T3, T6, T7, and T8 vertebral bodies. There is decreased disc height at most levels, severe at T3-T4, T6-T7, T7-T8, and T8-T9. There is multilevel facet joint osteoarthritis, severe at many levels in the upper thoracic spine. There is mild neural foraminal stenosis at multiple levels on either side. There is mild central canal stenosis at many levels. CT LUMBAR SPINE: There are chronic bilateral L5 pars defects. There is 8 mm anterolisthesis of L5 on S1. There is 3 mm retrolisthesis of L1 on L2. There is 12 degrees levoscoliosis of lumbar spine. There is mildly decreased disc height at L1-L2 and L2-L3 and severely decreased disc height from L3-L4 through L5-S1. There is multilevel severe facet joint osteoarthritis. The discs are bulging from L1-L2 through L5-S1. There is mild neural foraminal stenosis at multiple levels. On the left, there is moderate neural foraminal stenosis at L5-S1. There is mild central canal stenosis at the disc levels from L1-L2 through L5-S1. IMPRESSION: 1. No acute fracture. 2. Chronic bilateral L5 pars defects with grade 1 anterolisthesis of L5 on S1. 3. Severe thoracic and lumbar spondylosis. Reviewed, dictated and finalized at location E. MACHINE SUPERVISOR
[2025-04-11 08:23] VITALS: PULSE 18; RESP 20; TEMP 36.5; O2SAT 100
--- NOTE | 2025-04-11 08:52 | ED.GENADULT ---
HPI - General Adult General Chief complaint: Fall Stated complaint: glf, unwitnessed Time Seen by Provider: 04/11/25 08:26 History of Present Illness HPI narrative: 74-year-old male presents to the emergency department for evaluation after having a ground level fall. Patient does have history of frequent falls. Patient states he fell on his bottom and is having back and buttock pain. Patient is unsure if he struck his head. Initially patient was thought to be unresponsive on arrival by EMS blood patient woke up to verbal stimuli. Patient states he had just been sleeping waiting for EMS. Patient is alert and able to recall the fall. Patient denies any other pain or injury. Related Data Allergies Allergy/AdvReac Type Severity Reaction Status Date / Time meperidine (From Demerol) Allergy Nausea and Verified 04/11/25 08:30 Vomiting Review of Systems Review of Systems: All systems reviewed & are unremarkable except as noted in HPI and below PMFSH Past Medical History Medical History Orthostatic hypotension Hyperlipidemia Major depressive disorder Dysphagia Parkinsons disease Exam Narrative: APPEARANCE: Well appearing, no pain, no distress, well-nourished. HEAD: normocephalic, atraumatic. EYES: PERRLA/EOMI, conjunctivae clear. NOSE: Normal no drainage EARS:TMS clear with good light reflex. THROAT: Pharynx clear, no exudate. NECK: Supple. No adenopathy, no masses. RESPIRATORY: Airway patent, respirations nonlabored. Clear to auscultation bilaterally, no rales, rhonchi, wheezing. CARDIOVASCULAR: Regular rate and rhythm without murmurs rubs or gallops. ABDOMINAL: Soft, nontender, nondistended, normal bowel sounds MUSCULOSKELETAL: thoracic and lumbar spine tenderness to palpation, tenderness to bilateral buttock with bruising at cleft NEURO: At his normal neuro baseline SKIN: Warm, dry. Normal Color Course Vital Signs Vital signs: Vital Signs Temperature 97.7 F 04/11/25 08:23 Pulse Rate 18 L 04/11/25 08:23 Respiratory Rate 20 04/11/25 08:23 Pulse Oximetry 100 04/11/25 08:23 Oxygen Delivery Room Air 04/11/25 08:23 Temperature 97.7 F 04/11/25 08:23 Pulse Rate 18 L 04/11/25 08:23 Respiratory Rate 18 04/11/25 09:52 Blood Pressure 173/87 H 04/11/25 09:52 Pulse Oximetry 100 04/11/25 09:52 Oxygen Delivery Room Air 04/11/25 08:23 [facility] MDM Narrative Medical decision making narrative: 74-year-old male present to the emergency department for evaluation for having a ground level fall. Patient was complaining of lower back and buttock pain. Patient stated that he did strike his head. Patient had negative imaging of brain, cervical spine, thoracic spine and pelvis. No evidence of fracture dislocation. Patient was updated the results of his workup. Patient was discharged back to his care facility. All questions concerns were addressed Differential Diagnosis Differential Diagnosis: Subdural hematoma, subarachnoid hemorrhage, cervical spine fracture, thoracic fracture, lumbar fracture, pelvic fracture Imaging Data Radiologist's impression: ITS Impressions Cervical Spine CT 04/11/25 09:18 IMPRESSION: HEAD: 1. No acute intracranial findings. C-SPINE: 1. No acute fracture. Head CT 04/11/25 09:18 IMPRESSION: HEAD: 1. No acute intracranial findings. C-SPINE: 1. No acute fracture. Thoracic/Lumbar Spine CT 04/11/25 09:24 IMPRESSION: 1. No acute fracture. 2. Chronic bilateral L5 pars defects with grade 1 anterolisthesis of L5 on S1. 3. Severe thoracic and lumbar spondylosis. Pelvis CT 04/11/25 09:37 IMPRESSION: 1. No acute abnormality of the pelvis. Discharge Plan Discharge Clinical Impression: Head injury, Back pain Patient Disposition: Home Condition: Stable Instructions: Antibiotic Form, Head Injury (ED) Additional Instructions: Have close follow-up with your primary care physician. If you have any worsening symptoms then please call or return to the emergency department. Patient Language: Occitan Prescriptions: No Action Paxlovid 300 mg (150 mg x 2)-100 mg tablets,dose pack See Rx Instructions .ROUTE .COMPLEX Qty: 30 0RF Rx Instructions: take TWO 150 mg tablets of nirmatrelvir with ONE 100 mg tablet of ritonavir twice daily for 5 days acetaminophen [Tylenol Extra Strength] 500 mg tablet 1,000 mg PO Q6H PRN (Reason: pain) Qty: 50 0RF Follow-up/Referrals: Tony,Lisandro Lino DO [Primary Care Provider, Unknown]
[2025-04-11 09:52] VITALS: BP 173/87; RESP 18; O2SAT 100
--- OUTSIDE RECORDS SUMMARY | 2025-04-11 10:13 | XMS_ITS | Patient Health Record ---
Author Organization [facility] Address [address] [id number] Care Team Providers Care Bath Steward/Stewardess Name Role Phone Kari Rojas Primary Care Provider [phone] MANFRED CLARK Unavailable [phone] Allergies Allergen (clinical drug ingredient) Drug/Non Drug [...] (G20.A1) Diagnosis 4 Pain (R52) Referral Organization [facility] Referring Provider First Name Kari Referring Provider Last Name Bob Referred Organization [facility] [place] Referred Address [address] [place],[address],[place] Referred Provider Specialty DME Referral Priority Routine Reason Blood Pressure issue s Diagnosis 1 Hypotension, unspeci fied (I95.9) Referral Organization [facility] Referring Provider First Name Kari Referring Provider Last Name Bob Referred Organization [facility] Radha ayalajordon [facility] Ref[place], [place],[address],[place] Referred Provider Specialty Cardiology Referral Priority Routine Medications Medication SIG (Take, Route, Frequency, Duration) Notes Start Date End Date Status Midodrine HCl 5 MG Tablet 1 tablet daily and Orally daily; Duration: 30 days As needed once a day IF SBP IS LOWER THAN 110 02/03/2025 Active Melatonin 5 MG Tablet 1 tablet in the ev ening Orally Once a day; Duration: 30 day(s) 03/29/2025 Active MiraLax 17 GM/SCOOP Powder as directed O rally daily; Duration: 30 days 03/31/2025 07/29/2025 Active Melatonin 10 MG Tablet 1 tablet Orally d aily; Duration: 30 days 03/24/2025 Active Carbidopa-Levodopa 25-100 MG Tablet 2 tablets Orally three times a day Active Citalopram Hydrobromide 20 MG Tablet 1 tablet Orally Once a day Active Amantadine HCl 100 MG Tablet 1 tablet Orally Once a day Active Immunizations Vaccine Route Administration Date Status Comme [facility] Pfizer COVID-19 Vaccine Unknown 04/23/2020 Administered Social [...] W/U Status Risk Notes Problem Mixed hyperlipidemia (560454943) Mixed hyperlipidemia (E78.2) Active confirmed Problem Hyperlipidemia (87066902) Hyperlipidemia, unspecified (E78.5) Active confirmed Problem Oral phase dysphagia (800706430) Dysphagia, oral phase (R13.11) Active confirmed Problem Parkinson's disease (disorder) (01011812) Parkinson's disease without dyskinesia or fluctuating manifestations (G20.A1) Active confirmed Problem Hallucinations (4991112) Hallucinations (R44.3) Active confirmed Problem Depressive disorder (02000362) Depressive disorder (F32.A) Active confirmed Vital Signs Heart Rate 83 /min 03/23/2025 Temperature 97.4 degrees Fahrenheit 02/09/2025 Respiratory Rate 18 /min 03/23/2025 Oximetry 97 % 03/23/2025 Blood pressure diastolic 76 mm Hg 03/23/2025 Blood pressure systolic 118 mm Hg 03/23/2025 Encounters Encounter Location Date Provider Diagnosis [facility] [place] [address] [place] [address] 05/26/2024 Kari Davis Parkinson's disease without dyskinesia or fluctuating manifestations G20.A1 ; Orthostatic hypotension I95.1 ; Hyperlipidemia, unspecified E78.5 and Depressive disorder F32.A [facility] [place] [address] [place] [address] 08/18/2024 [facility] Parkinson's disease without dyskinesia or fluctuating manifestations G20.A1 ; Hyperlipidemia, unspecified E78.5 and Depressive disorder F32.A [facility] [place] [address] [place] [address] 11/17/2024 [facility] Parkinson's disease without dyskinesia or fluctuating manifestations G20.A1 ; Hyperlipidemia, unspecified E78.5 and Depressive disorder F32.A [facility] [place] [address] [place] [address] 02/09/2025 [facility] Syncope and collapse R55 [facility] [place] [address] [place] [address] 02/23/2025 [facility] Parkinson's disease without dyskinesia or fluctuating manifestations G20.A1 ; Hyperlipidemia, unspecified E78.5 ; Depressive disorder F32.A and Orthostatic hypotension I95.1 [facility] [place] [address] [place] [address] 03/23/2025 [facility] Hallucinations R44.3 [facility] [place] [address] [place] [address] 05/26/2024 Kari Bob [facility] [place] [address] [place] [address] [facility] [place] [address] [place] [address] 10/19/2024 MANFRED CLARK [facility] [place] [address] [place] [address] 10/27/2024 Kari Rojas [facility] [address], [place] [id number] 10/27/2024 MANFRED CLARK [facility] [place] [address] [place] [address] 10/28/2024 MANFRED CLARK [facility] [place] [address] [place] [address] 10/28/2024 MANFRED CLARK [facility] [place] [address] [place] [address] 11/17/2024 Kari Rojas [facility] [place] [address] [place] [address] 11/29/2024 Kari Rojas [facility] [address] [phone] 12/13/2024 MANFRED CLARK [facility] [place] [address] [place] [address] 12/14/2024 MANFRED CLARK [facility] [address] [phone] 01/10/2025 Kari Rojas [facility] [place] [address] [place] [address] 02/01/2025 MANFRED CLARK [facility] [place] [address] [place] [address] 02/02/2025 Kari Rojas [facility] [place] [address] [place] [address] 02/03/2025 MANFRED CLARK [facility] [place] [address] [place] [address] 02/03/2025 Kari Rojas [facility] [place] [address] [place] [address] 02/05/2025 Kari Rojas [facility] [address], [place] [phone] 02/09/2025 Kari Rojas [facility] [place] [address] [place] [address] 02/10/2025 Kari Rojas [facility] [place] [address] [place] [address] 02/17/2025 Kari Rojas [facility] [place] [address] [place] [address] 02/17/2025 Kari Rojas [facility] [place] [address] [place] [address] 02/22/[address] [facility] [address] [phone] 02/23/[address] [facility] [address] [id number] 02/24/2025 Kari Davis [facility] [place] [address] [place] [address] 02/27/2025 Kari Rojas [facility] [place] [address] [place] [address] 03/06/2025 Kariflo Rojas [facility] [place] [address] [place] [address] 03/12/2025 Kari Rojas [facility] [place] [address] [place] [address] 03/17/2025 Kari Rojas [facility] [place] [address] [place] [address] 03/22/2025 Kari Rojas [facility] [place] [address] [place] [address] 03/24/2025 Kari Bob [facility] [place] [address] [place] [address] 03/29/[address] [facility] [address] [phone] 03/29/2025 Kari Bob [facility] [place] [address] [place] [address] 03/31/2025 Kari Bob Assessments Encounter Date Diagnosis (ICD Code) Assessment [...] Symptoms well controlled with current dose of carbidopa-levodopa . Continue current treatment plan and monitoring. 11/17/2024 Parkinson's disease without dyskinesia or fluctuating manifestations (ICD-10 - G20.A1) Patient is followed by neurology. Denies tremor. Symptoms well controlled with current dose of carbidopa-levodopa . Continue current treatment plan and monitoring. 02/09/2025 [...] for any problems. Lacerationis looking very well. 03/23/2025 Hallucinations (ICD-10 - R44.3) Patient has been having hallucinations for a few weeks. Staff report that they have become more frequent, patient has been reporting seeing ants and snakes in his room. Last night, he did call 911 due to saying he had snakes in his room. Staff report that patient will be moving to the care unit this weekend. Order given to draw a CBC, BMP, ammonia level, TSH, free T4, vitamin B12 and vitamin D levels on next lab day, which will be 03/30/2025. Also gave order to repeat UA C&S. 05/26/2024 Parkinson's disease without dyskinesia or fluctuating manifestations (ICD-10 - G20.A1) Patient is followed by neurology. Denies tremor. Symptoms well controlled with current dose of carbidopa-levodopa . Continue current treatment plan and monitoring. 02/23/2025 Parkinson's disease without dyskinesia or fluctuating manifestations (ICD-10 - G20.A1) Patient is followed by neurology. Denies tremor. Symptoms well controlled with current dose of carbidopa-levodopa . Continue current treatment plan and monitoring. Due [...] ordinary bed in order to remain safe. 02/23/2025 Hyperlipidemia, unspecified (ICD-10 - E78.5) Last lipid panel 02/25/24 stable. Triglycerides WNL (88), HDL WNL (52), and LDL WNL (76). Currently taking low dose statin. Denies adverse signs or symptoms. 05/26/2024 Orthostatic hypotension (ICD-10 - I95.1) BP [...] continue doing activities that he normally does. 02/23/2025 Depressive disorder (ICD-10 - F32.A) Stable. [...] report any changes. Patient education provided and questions/concerns addressed. Follow up in three months unless necessary sooner. Please refer to facility EHR for current and accurate medication list and treatments. 11/17/2024 Other Continue current treatment plan. Staff to continue to monitor and report any changes. Patient education provided and questions/concerns addressed. Follow up in three months unless necessary sooner. 08/18/2024 Other Continue current treatment plan. Staff to continue to monitor and report any changes. Patient education provided and questions/concerns addressed. Follow up in three months unless necessary sooner. Reviewed HIPAA Right to Privacy Practices with patient/family/car egiver. Draw CBC, BMP, and A1C on next lab day. 02/23/2025 Other Continue current treatment plan. Staff to continue to monitor and report any changes. Patient education provided and questions/concerns addressed. Follow up in three months unless necessary sooner. 02/09/2025 Other Continue current treatment plan. Staff to continue to monitor and report any changes. Patient education provided and questions/concerns addressed. Follow up in 3 months unless necessary sooner. 03/23/2025 Other Patient with multiple chronic conditions, each requiring ongoing management and coordination of care. Reviewed and interpreted most recent laboratory results available, diagnostic studies, and prior specialist notes. Staff to continue to monitor and report any changes. Patient education provided and questions/concerns addressed. Close follow-up required; reassess in 3 months or sooner if condition worsens. Plan Of Treatment Future Test Test Name Order Date Vitamin B12 03/30/2025 Ammonia, Plasma 03/30/2025 Vitamin D, 25-Hydroxy 03/30/2025 TSH+Free T4 03/30/2025 Basic Metabolic Panel (8) 03/30/2025 CBC 03/30/2025 Urine Culture and Sensitivity 03/30/2025 Urinalysis 03/30/2025 Insurance Providers Payer Name Payer Address Payer Phone Subscriber Number Group Number Insured Name Patient Relationship to Insured Coverage Start Date Coverage End Date Darrick [address] [place] [address] [id number] 1 Tirso Acosta Self - patient is the insured [employer] [place] [address] [place] [id number] [phone] [id number] Tirso Acosta Self - patient is the insured Medical (General) History Medical History History ICD Code Parkinsonism, unspecified G20.C Dysphagia, oral phase R13.11 Major depressive disorder, single episod e, unspecified F32.9 Hyperlipidemia, unspecified E78.5 Orthostatic hypotension I95.1 Surgical History Surgery Date(Month/Year) PARTIAL HIP REPLACEMENT TOTAL KNEE ARTHROPLASTY
--- OUTSIDE RECORDS SUMMARY | 2025-04-11 10:13 | XMS_ITS | Data Portability ---
Author Organization [place] - [facility], [employer] Address [address] [place] [address] Care Team Providers Care Merchandise Flow Team Member Name Role Phone WAQAS SAAVEDRA OTHER Assessment Encounter Date Assessment Date Assessment LastModified by Organization Details LastModified Time 12/29/2022 12/29/2022 Medication Changes FELIX obtained. Records requested labs to samuel lopez spoke with daughter regarding neurology referral. [facility] to [facility] talked about therapy and she wants PT for now and in the future would like to have [employer]. Signs and symptoms of when to seek further care reviewed with patient/caregive r/family/facilit y staff. Patient to follow up with primary care provider or return to clinic for any worsening signs and symptoms. Always present to ER or Urgent Care with any progression of/alarming symptoms, significant changes in symptoms or any concerning or urgent matters. Patient/caregive r/family/facilit y staff verbalized agreement and understanding of treatment plan. F/U 12 weeks, sooner if needed My total encounter time was 60 minutes which was spent in the activities documented in the note. This includes time spent prior to the visit, performing a medically appropriate examination with evaluation, and after the visit in direct care of the patient (history and exam; ordering prescriptions/la bs/imaging/home health/therapy/s pecialists; communicating results to patient and/or other relative individuals; counseling/educa ting patient; documenting clinical information in patient s chart; coordination of care for the patient). This time does not include time spent in any separately reportable services. [email or web address] Not available 12/30/2022 14:48:01 03/23/2023 03/23/2023 Medication Changes Citalopram 20 mg qD D/C Citalopram 10 mg Counseled patient that if 10 mg not helping and needs to take 20 mg consistently as the medication has to reach a therapeutic level. Will change the medication to 20 mg qD to keep consistent level and help with depression. labs ordered to eval levels Signs and symptoms of when to seek further care reviewed with patient/caregive r/family/facilit y staff. Patient to follow up with primary care provider or return to clinic for any worsening signs and symptoms. Always present to ER or Urgent Care with any progression of/alarming symptoms, significant changes in symptoms or any concerning or urgent matters. Patient/caregive r/family/facilit y staff verbalized agreement and understanding of treatment plan. F/U 12 weeks, sooner if needed [email or web address] Not available 03/23/2023 11:23:15 06/10/2023 06/10/2023 Medication Changes labs ordered to eval levels. Obtaining A1C given the above normal levels on random labs. Lipid to evaluate HLD. PT/OT/[employer] ordered for change in condition with movement, ADLs, and swallowing. Therapy to work and address abnormalities to facilitate returning to level of independence and improvement with changes in condition. Doing well with Citalopram for depression. Has more good than bad days. Denies SI/HI. He is able to function at the current level he is at. Monitor for worsening s/sxs or SI/HI. Signs and symptoms of when to seek further care reviewed with patient/caregive r/family/facilit y staff. Patient to follow up with primary care provider or return to clinic for any worsening signs and symptoms. Always present to ER or Urgent Care with any progression of/alarming symptoms, significant changes in symptoms or any concerning or urgent matters. Patient/caregive r/family/facilit y staff verbalized agreement and understanding of treatment plan. F/U 12 weeks, sooner if needed [email or web address] Not available 06/10/2023 09:15:30 06/30/2023 06/30/2023 Medication Changes - Patient reports feeling different and experiencing moments of dizziness, attributed to orthostatic hypotension possibly related to Parkinson's disease or its medication. - Mood described as okay, but acknowledges potential depression, difficulty adjusting to living alone, and a history of feeling hopeless and helpless, which has improved with physical therapy and staying active. - Patient is currently taking two 10 mg tablets daily for depression, an adjustment from the initial prescription, following a hospital visit. - Exhibits awareness of his condition and attempts to maintain a positive outlook, despite acknowledging occasional feelings of sadness and depression. Orthostatic Hypotension: - Plan: - Continue to monitor the patient's blood pressure and ensure they are adequately hydrated. - Educate the patient on the importance of standing up slowly to prevent dizziness and maintain proper hydration. Parkinson's Disease: - Plan: - Encourage the patient to continue with physical therapy to improve mobility and reduce fall risk. - Monitor for any changes in symptoms or side effects from current medications, carbidopa-levodo pa and amantadine. Depression: - Plan: - Continue to monitor the patient's mood and depressive symptoms while they are on Citalopram 10 mg twice daily. - Encourage engagement in activities that promote mental well-being, including physical therapy and social interactions. - Consider adjusting the dosage of Citalopram if depressive symptoms persist or worsen. Fall Risk: - Plan: - Continue physical therapy to improve the patient's balance and mobility. - Encourage the use of a walker to provide added stability and safety, given the patient's history of falls. Cholesterol Management: - Plan: - Continue the patient's treatment with Rosuvastatin for cholesterol management. - Discuss the possibility of transitioning to a fish oil supplement for a more organic approach to managing cholesterol. - Monitor cholesterol levels and adjust treatment as necessary. Glucose Management: - Plan: - Monitor the patient's glucose levels and watch for any signs of diabetes, given the slight elevation in the last lab results. - Encourage a healthy diet and lifestyle to help maintain glucose levels within the normal range. Signs and symptoms of when to seek further care reviewed with patient/caregive r/family/facilit y staff. Patient to follow up with primary care provider or return to clinic for any worsening signs and symptoms. Always present to ER or Urgent Care with any progression of/alarming symptoms, significant changes in symptoms or any concerning or urgent matters. Patient/caregive r/family/facilit y staff verbalized agreement and understanding of treatment plan. F/U 8 weeks, sooner if needed My total encounter time was 60 minutes which was spent in the activities documented in the note. This includes time spent prior to the visit, performing a medically appropriate examination with evaluation, and after the visit in direct care of the patient (history and exam; ordering prescriptions/la bs/imaging/home health/therapy/s pecialists; communicating results to patient and/or other relative individuals; counseling/educa ting patient; documenting clinical information in patient s chart; coordination of care for the patient). This time does not include time spent in any separately reportable services. [email or web address] Not available 06/30/2023 21:17:58 09/02/2023 09/02/2023 Depression: - Patient reports feeling better and no longer experiencing sadness or decreased interest in activities. - Currently on citalopram 20 mg daily. - Continue citalopram 20 mg daily for a few more months. - Reevaluate in 6 months and consider tapering the medication if no worsening of mood or symptoms. Parkinson's Disease: - Patient has established care with a neurologist. - Taking medication to prevent dyskinesia. - Continue following up with neurologist as recommended. - Monitor for any changes in symptoms or progression of the disease. Hyperlipidemia: - Patient is currently on rosuvastatin. - Expressed interest in trying fish oil instead. - Discontinue rosuvastatin. - Start fish oil supplementation. - Monitor cholesterol levels in the upcoming lab tests to evaluate current levels. Sleep and Appetite: - Patient reports sleeping well and having a good appetite. - Continue monitoring sleep and appetite during follow-up visits. Constipation: - Patient is taking Miralax and reports good bowel movements when using it. - Continue Miralax as needed for constipation. Labs: - Ordered labs to check cholesterol levels, blood counts, kidneys, and liver. - Review lab results and address any abnormalities as needed. Medication Changes / Orders d/c Crestor Fish Oil 2 capsules daily Signs and symptoms of when to seek further care reviewed with patient/caregive r/family/facilit y staff. Patient to follow up with primary care provider or return to clinic for any worsening signs and symptoms. Always present to ER or Urgent Care with any progression of/alarming symptoms, significant changes in symptoms or any concerning or urgent matters. Patient/caregive r/family/facilit y staff verbalized agreement and understanding of treatment plan. F/U 12 weeks, sooner if needed Not available 09/02/2023 15:53:08 Plan of Treatment Reminders Order Date Submit Date Provider Last Modified By Organization Details Last Modified Time Details Appointments None recorded. Lab lipid panel, serum 2023 024 DIANA [facility], [address], [place], [address], 4 13:12:45 unlisted lab - complete blood count with auto diff* 2023 024 DIANA Licea, [address], [place], [address], 4 13:12:44 CMP, serum or plasma [address], [place], [address], 4 13:12:45 HbA1c (hemoglobi n A1c), blood [email or web address], [place], [address], 4 08:16:52 lipid panel, serum [email or web address], [place], [address], 4 08:16:52 CMP, serum or plasma [email or web address], [place], [address], 4 08:16:52 unlisted lab - complete blood count with auto diff* [email or web address], [place], [address], 4 08:16:52 lipid panel, serum [address], [place], [address], 3 16:54:37 unlisted lab - complete blood count with auto diff* 2022 023 DIANA Licea, [address], [place], [address], 3 16:54:36 CMP, serum or plasma 2022 023 DIANA Licea, [address], [place], [address], 3 16:54:37 lipid panel, serum 2022 023 Anuja, [address], [place], [address], 3 17:00:30 unlisted lab - complete blood count with auto diff* [address], [place], [address], 3 12:21:31 CMP, serum or plasma 2022 023 [email or web address] Licea, [address], [place], [address], 3 17:00:30 Referral physical therapist referral - Please transition into maintenanc e. 2023 024 [email or web address] [facility] [place], [address], [place], [address], 4 21:20:55 speech therapy referral 2023 024 DIANA [facility] [place], [address], [place], [address], 4 10:49:35 physical therapist referral 2023 024 [email or web address] [facility] [place], [address], [place], [address], 4 09:17:05 occupation al therapist referral 2023 024 [email or web address] [facility] [place], [address] [place], [address], 4 16:58:26 occupation al therapist referral 2023 024 [email or web address] [facility] [place], [address] [place], [address], 4 09:16:59 physical therapist referral 2022 023 [email or web address] [facility] [place], [address] [place] [place], [address], 3 08:46:08 neurologis t referral 2022 023 [email or web address] Walt Delarosa MD, [address] [facility], [facility] [address], [address], 3 15:09:31 neurologis t referral 2022 023 DIANA Hugo Boswell MD, [address] [facility], [place] [address], [place], [address], 3 08:54:49 Procedures None recorded. Surgeries None recorded. Imaging None recorded. Medication Orders citalopram 20 mg tablet 2023 024 DIANA [id number], [address] [place], [address], 4 17:02:21 rosuvastat in 5 mg tablet 2023 024 [id number], [address] [place], [address], 4 09:46:56 citalopram 20 mg tablet 2023 024 DIANA Not available 4 09:16:21 rosuvastat in 5 mg tablet 2023 024 Not available 4 09:46:56 citalopram 20 mg tablet 2022 023 DIANA Not available 3 15:36:05 Patient TargetsNo targets recorded. Patient Instructions Encounter Date Encounter Id Patient Instructions Last Modified By Organization Details Last Modified Time 12/29/2022 [id number] care plan* Not available 12/12 14:28:20 Reason for Referral Physical Therapist Referral for Parkinson's disease Referring Physician: [facility], Encounter Date: 12/29/2022 Neurologist Referral for Par kinson's disease Referring Physician: [facility], Encounter Date: 12/29/2022 Neurologist Referral for Par kinson's disease Referring Physician: [facility], Encounter Date: 12/29/2022 Occupational Therapist Refer ral for Disability affecting daily living Referring Physician: [facility], Encounter Date: 06/10/2023 Physical Therapist Referral for Parkinson's disease Referring Physician: [facility], Encounter Date: 06/10/2023 Occupational Therapist Refer ral for Parkinson's disease Referring Physician: [facility], Encounter Date: 06/10/2023 Referring Physician: [facility], Encounter Date: 06/10/2023 Physical Therapist Referral for Parkinson's disease Please transition into maintenance. Referring Physician: [facility], Encounter Date: 06/30/2023 Results Created Date Observation Date Name Description Value Unit Range Abnormal Flag Note LastModifiedBy Organization Detail LastModifiedTime 01/07/2001/06/2023 COMPL ETE BLOOD COUNT WITH AUTO DIFF* WBC 8.38 10E3/ uL 4.50-1 1.50 Not Available [facility] [address], [place], [address], 01/07/2023 12:21:31 01/07/2001/06/2023 COMPL ETE BLOOD COUNT WITH AUTO DIFF* RBC 4.57 10E6/ uL 4.60-6 .00 low Not Available [facility] [address], [place], [address], 01/07/2023 12:21:31 01/07/20 23 01/06/2023 COMPL ETE BLOOD COUNT WITH AUTO DIFF* HGB 14.5 g/dL 14.0-1 8.0 Not Available [facility] [address], [place], [address], 01/07/2023 12:21:31 01/07/20 23 01/06/2023 COMPL ETE BLOOD COUNT WITH AUTO DIFF* HCT 44.8 % 40.0-5 4.0 Not Available [facility] [address], [place], [address], 01/07/2023 12:21:31 01/07/20 23 01/06/2023 COMPL ETE BLOOD COUNT WITH AUTO DIFF* MCV 98 fL 80-100 Not Available [facility] [address], [place], [address], 01/07/2023 12:21:31 01/07/20 23 01/06/2023 COMPL ETE BLOOD COUNT WITH AUTO DIFF* MCH 32 pg 26-32 Not Available [facility] [address], [place], [address], 01/07/2023 12:21:31 01/07/20 23 01/06/2023 COMPL ETE BLOOD COUNT WITH AUTO DIFF* MCHC 32 g/dL 32-36 Not Available [facility] [address], [place], [address], 01/07/2023 12:21:31 01/07/20 23 01/06/2023 COMPL ETE BLOOD COUNT WITH AUTO DIFF* RDW 12.4 % 11.5-1 4.5 Not Available [facility] [address], [place], [address], 01/07/2023 12:21:31 01/07/20 23 01/06/2023 COMPL ETE BLOOD COUNT WITH AUTO DIFF* plt 209 10E3/ uL 150-45 0 Not Available [facility] [address], [place], [address], 01/07/2023 12:21:31 01/07/20 23 01/06/2023 COMPL ETE BLOOD COUNT WITH AUTO DIFF* neut% 72.1 % 50.0-7 0.0 high Not Available [facility] [address], [place], [address], 01/07/2023 12:21:31 01/07/20 23 01/06/2023 COMPL ETE BLOOD COUNT WITH AUTO DIFF* lymph% 17.9 % 18.0-4 2.0 low Not Available [facility] [address], [place], [address], 01/07/2023 12:21:31 01/07/20 23 01/06/2023 COMPL ETE BLOOD COUNT WITH AUTO DIFF* mono% 8.1 % 2.0-11 .0 Not Available [facility] [address], [place], [address], 01/07/2023 12:21:31 01/07/20 23 01/06/2023 COMPL ETE BLOOD COUNT WITH AUTO DIFF* eos% 1.2 % 1.0-3. 0 Not Available [facility] [address], [place], [address], 01/07/2023 12:21:31 01/07/20 23 01/06/2023 COMPL ETE BLOOD COUNT WITH AUTO DIFF* baso% 0.5 % 0.0-2. 0 Not Available [facility] [address], [place], [address], 01/07/2023 12:21:31 01/07/20 23 01/06/2023 COMPL ETE BLOOD COUNT WITH AUTO DIFF* Ig% 0.2 % 0.0-0. 6 Not Available [facility] [address], [place], [address], 01/07/2023 12:21:31 01/07/20 23 01/06/2023 COMPL ETE BLOOD COUNT WITH AUTO DIFF* neut# 6.04 10E3/ uL 2.30-8 .10 Not Available [facility] [address], [place], [address], 01/07/2023 12:21:31 01/07/20 23 01/06/2023 COMPL ETE BLOOD COUNT WITH AUTO DIFF* lymph# 1.50 10E3/ uL 0.80-4 .80 Not Available [facility] [address], [place], [address], 01/07/2023 12:21:31 01/07/20 23 01/06/2023 COMPL ETE BLOOD COUNT WITH AUTO DIFF* mono# 0.68 10E3/ uL 0.45-1 .30 Not Available [facility] [address], [place], [address], 01/07/2023 12:21:31 01/07/20 23 01/06/2023 COMPL ETE BLOOD COUNT WITH AUTO DIFF* eos# 0.10 10E3/ uL 0.00-0 .40 Not Available [facility] [address], [place], [address], 01/07/2023 12:21:31 01/07/20 23 01/06/2023 COMPL ETE BLOOD COUNT WITH AUTO DIFF* baso# 0.04 10E3/ uL 0.00-0 .10 Not Available [facility] [address], [place], [address], 01/07/2023 12:21:31 01/07/20 23 01/06/2023 COMPL ETE BLOOD COUNT WITH AUTO DIFF* Ig# 0.02 10E3/ uL 0.00-0 .09 Not Available [facility] [address], [place], [address], 01/07/2023 12:21:31 01/07/20 23 01/06/2023 COMPR EHENS KING METAB OLIC PANEL * glucose 91 mg/dL 70-99 The Ameri can Diabe shaan Assoc iatio n (ADA) recom mends the follo wing crite adalberto for the diagn osis of diabe shaan: 1) Sympt oms of diabe shaan and a rando m gluco se >200 mg/dL OR 2) Fasti ng gluco se >= 126 mg/dL on more than one occas ion. Impai red fasti ng gluco se (IFG) , a fasti ng gluco se betwe en 100 and 125 mg/dL , is defin ed by the ADA as a categ ory at risk for futur e diabe shaan and cardi ovasc ular disea se (Pred iabet es). Not Available [facility] [address], [place], [address], 01/07/2023 12:21:32 01/07/20 23 01/06/2023 COMPR EHENS KING METAB OLIC PANEL * BUN 17 mg/dL 8-23 Not Available [facility] [address], [place], [address], 01/07/2023 12:21:32 01/07/20 23 01/06/2023 COMPR EHENS KING METAB OLIC PANEL * calcium 8.7 mg/dL 8.8-10 .2 low Not Available [facility] [address], [place], [address], 01/07/2023 12:21:32 01/07/20 23 01/06/2023 COMPR EHENS KING METAB OLIC PANEL * creatinine 1.10 mg/dL 0.80-1 .30 Not Available [facility] [address], [place], [address], 01/07/2023 12:21:32 01/07/20 23 01/06/2023 COMPR EHENS KING METAB OLIC PANEL * sodium 142 mmol/ L 136-14 5 Not Available [facility] [address], [place], [address], 01/07/2023 12:21:32 01/07/20 23 01/06/2023 COMPR EHENS KING METAB OLIC PANEL * potassium 4.6 mmol/ L 3.5-5. 1 Not Available [facility] [address], [place], [address], 01/07/2023 12:21:32 01/07/20 23 01/06/2023 COMPR EHENS KING METAB OLIC PANEL * chloride 104 mEq/L 98-107 Not Available [facility] [address], [place], [address], 01/07/2023 12:21:32 01/07/20 23 01/06/2023 COMPR EHENS KING METAB OLIC PANEL * carbon dioxide 29 mmol/ L 23-30 Not Available [facility] [address], [place], [address], 01/07/2023 12:21:32 01/07/20 23 01/06/2023 COMPR EHENS KING METAB OLIC PANEL * total protein 7.0 g/dL 6.2-8. 1 Not Available [facility] [address], [place], [address], 01/07/2023 12:21:32 01/07/20 23 01/06/2023 COMPR EHENS KING METAB OLIC PANEL * albumin 3.9 g/dL 3.2-4. 6 Not Available [facility] [address], [place], [address], 01/07/2023 12:21:32 01/07/20 23 01/06/2023 COMPR EHENS KING METAB OLIC PANEL * globulin 3.1 g/dL 2.3-3. 4 Not Available [facility] [address], [place], [address], 01/07/2023 12:21:32 01/07/20 23 01/06/2023 COMPR EHENS KING METAB OLIC PANEL * A/G ratio 1.3 g/dL 0.8-2. 0 Not Available [facility] [address], [place], [address], 01/07/2023 12:21:32 01/07/20 23 01/06/2023 COMPR EHENS KING METAB OLIC PANEL * alkaline phosphatase 60 U/L 30-120 Not Available [facility] [address], [place], [address], 01/07/2023 12:21:32 01/07/20 23 01/06/2023 COMPR EHENS KING METAB OLIC PANEL * ALT (SGPT) 11 U/L 13-40 low Not Available [facility] [address], [place], [address], 01/07/2023 12:21:32 01/07/20 23 01/06/2023 COMPR EHENS KING METAB OLIC PANEL * AST (SGOT) 16 U/L 19-48 low Not Available [facility] [address], [place], [address], 01/07/2023 12:21:32 01/07/20 23 01/06/2023 COMPR EHENS KING METAB OLIC PANEL * bilirubin, total 0.48 mg/dL 0.20-1 .10 Not Available [facility] [address], [place], [address], 01/07/2023 12:21:32 01/07/20 23 01/06/2023 COMPR EHENS KING METAB OLIC PANEL * eGFR >60.00 mL/mi n/1.7 3m2 >60.00 The estim ated glome rular filtr ation rate (eGFR ) was deter mined using the 2020 CKD-E PI creat inine equat ion, which does not consi sonny race as a facto r. This equat ion is for indiv idual s aged >=18 years with the resul t adjus bel to a body surfa ce area of 1.73 m2. This calcu latio n has been updat ed on labor atory repor ts effec tive 11/18 . Not Available [facility] [address], [place], [address], 01/07/2023 12:21:32 01/07/2001/06/2023 LIPID PANEL * cholesterol 130 mg/dL <200 Natio nal Amalia stero l Educa tion Progr am (NCEP ) guide lines : Nic able: <200 mg/dL Borde rline : 200-2 39 mg/dL High: =>240 mg/dL Not Available [facility] [address], [place], [address], 01/07/2023 12:21:33 01/07/2001/06/2023 LIPID PANEL * LDL 62 mg/dL <100 Natio nal Amalia stero l Educa tion Progr am (NCEP ) Guide lines : Optim al: <100 mg/dL Near Optim al: 100 - 129 mg/dL Borde rline : 130 - 159 mg/dL High: 160 - 189 mg/dL Very High: =>190 mg/dL Not Available [facility] [address], [place], [address], 01/07/2023 12:21:33 01/07/20 23 01/06/2023 LIPID PANEL * HDL 53 mg/dL 40-59 Natio nal Amalia stero l Educa tion Progr am (NCEP ) guide lines : Low: <40 mg/dL High: =>60 mg/dL Not Available [facility] [address], [place], [address], 01/07/2023 12:21:33 01/07/20 23 01/06/2023 LIPID PANEL * triglyceride s 53 mg/dL <150 Natio nal Amalia stero l Educa tion Progr am (NCEP ) guide lines : Rosa l: <150 mg/dL Borde rline : 150-1 99 mg/dL High: 200-4 99 mg/dL Very High: =>500 mg/dL Not Available [facility] [address], [place], [address], 01/07/2023 12:21:33 01/07/2001/06/2023 LIPID PANEL * VLDL 11 mg/dL <30 Not Available [facility] [address], [place], [address], 01/07/2023 12:21:33 03/25/2003/25/2023 COMPL ETE BLOOD COUNT WITH AUTO DIFF* WBC 7.50 10E3/ uL 4.50-1 1.50 Not Available [facility] [address], [place], [address], 03/26/2023 16:54:36 03/25/20 23 03/25/2023 COMPL ETE BLOOD COUNT WITH AUTO DIFF* RBC 4.38 10E6/ uL 4.60-6 .00 low Not Available [facility] [address], [place], [address], 03/26/2023 16:54:36 03/25/20 23 03/25/2023 COMPL ETE BLOOD COUNT WITH AUTO DIFF* HGB 14.0 g/dL 14.0-1 8.0 Not Available [facility] [address], [place], [address], 03/26/2023 16:54:36 03/25/20 23 03/25/2023 COMPL ETE BLOOD COUNT WITH AUTO DIFF* HCT 43.3 % 40.0-5 4.0 Not Available [facility] [address], [place], [address], 03/26/2023 16:54:36 03/25/20 23 03/25/2023 COMPL ETE BLOOD COUNT WITH AUTO DIFF* MCV 99 fL 80-100 Not Available [facility] [address], [place], [address], 03/26/2023 16:54:36 03/25/20 23 03/25/2023 COMPL ETE BLOOD COUNT WITH AUTO DIFF* MCH 32 pg 26-32 Not Available [facility] [address], [place], [address], 03/26/2023 16:54:36 03/25/20 23 03/25/2023 COMPL ETE BLOOD COUNT WITH AUTO DIFF* MCHC 32.3 g/dL 32.0-3 6.0 Not Available [facility] [address], [place], [address], 03/26/2023 16:54:36 03/25/20 23 03/25/2023 COMPL ETE BLOOD COUNT WITH AUTO DIFF* RDW 12.5 % 11.5-1 4.5 Not Available [facility] [address], [place], [address], 03/26/2023 16:54:36 03/25/20 23 03/25/2023 COMPL ETE BLOOD COUNT WITH AUTO DIFF* plt 188 10E3/ uL 150-45 0 Not Available [facility] [address], [place], [address], 03/26/2023 16:54:36 03/25/20 23 03/25/2023 COMPL ETE BLOOD COUNT WITH AUTO DIFF* neut% 74.3 % 50.0-7 0.0 high Not Available [facility] [address], [place], [address], 03/26/2023 16:54:36 03/25/20 23 03/25/2023 COMPL ETE BLOOD COUNT WITH AUTO DIFF* lymph% 17.2 % 18.0-4 2.0 low Not Available [facility] [address], [place], [address], 03/26/2023 16:54:36 03/25/20 23 03/25/2023 COMPL ETE BLOOD COUNT WITH AUTO DIFF* mono% 6.3 % 2.0-11 .0 Not Available [facility] [address], [place], [address], 03/26/2023 16:54:36 03/25/20 23 03/25/2023 COMPL ETE BLOOD COUNT WITH AUTO DIFF* eos% 1.2 % 1.0-3. 0 Not Available [facility] [address], [place], [address], 03/26/2023 16:54:36 03/25/20 23 03/25/2023 COMPL ETE BLOOD COUNT WITH AUTO DIFF* baso% 0.5 % 0.0-2. 0 Not Available [facility] [address], [place], [address], 03/26/2023 16:54:36 03/25/20 23 03/25/2023 COMPL ETE BLOOD COUNT WITH AUTO DIFF* Ig% 0.5 % 0.0-0. 6 Not Available [facility] [address], [place], [address], 03/26/2023 16:54:36 03/25/20 23 03/25/2023 COMPL ETE BLOOD COUNT WITH AUTO DIFF* neut# 5.57 10E3/ uL 2.30-8 .10 Not Available [facility] [address], [place], [address], 03/26/2023 16:54:36 03/25/20 23 03/25/2023 COMPL ETE BLOOD COUNT WITH AUTO DIFF* lymph# 1.29 10E3/ uL 0.80-4 .80 Not Available [facility] [address], [place], [address], 03/26/2023 16:54:36 03/25/20 23 03/25/2023 COMPL ETE BLOOD COUNT WITH AUTO DIFF* mono# 0.47 10E3/ uL 0.45-1 .30 Not Available [facility] [address], [place], [address], 03/26/2023 16:54:36 03/25/20 23 03/25/2023 COMPL ETE BLOOD COUNT WITH AUTO DIFF* eos# 0.09 10E3/ uL 0.00-0 .40 Not Available [facility] [address], [place], [address], 03/26/2023 16:54:36 03/25/20 23 03/25/2023 COMPL ETE BLOOD COUNT WITH AUTO DIFF* baso# 0.04 10E3/ uL 0.00-0 .10 Not Available [facility] [address], [place], [address], 03/26/2023 16:54:36 03/25/20 23 03/25/2023 COMPL ETE BLOOD COUNT WITH AUTO DIFF* Ig# 0.04 10E3/ uL 0.00-0 .09 Not Available [facility] [address], [place], [address], 03/26/2023 16:54:36 03/25/20 23 03/25/2023 COMPR EHENS KING METAB OLIC PANEL * glucose 145 mg/dL 70-99 high The Ameri can Diabe shaan Assoc iatio n (ADA) recom mends the follo wing crite adalberto for the diagn osis of diabe shaan: 1) Sympt oms of diabe shaan and a rando m gluco se >200 mg/dL OR 2) Fasti ng gluco se >= 126 mg/dL on more than one occas ion. Impai red fasti ng gluco se (IFG) , a fasti ng gluco se betwe en 100 and 125 mg/dL , is defin ed by the ADA as a categ ory at risk for futur e diabe shaan and cardi ovasc ular disea se (Pred iabet es). Not Available [facility] [address], [place], [address], 03/26/2023 16:54:36 03/25/20 23 03/25/2023 COMPR EHENS KING METAB OLIC PANEL * BUN 23 mg/dL 8-23 Not Available [facility] [address], [place], [address], 03/26/2023 16:54:36 03/25/20 23 03/25/2023 COMPR EHENS KING METAB OLIC PANEL * calcium 9.0 mg/dL 8.8-10 .2 Not Available [facility] [address], [place], [address], 03/26/2023 16:54:36 03/25/20 23 03/25/2023 COMPR EHENS KING METAB OLIC PANEL * creatinine 1.35 mg/dL 0.80-1 .30 high Not Available [facility] [address], [place], [address], 03/26/2023 16:54:36 03/25/20 23 03/25/2023 COMPR EHENS KING METAB OLIC PANEL * sodium 143 mmol/ L 136-14 5 Not Available [facility] [address], [place], [address], 03/26/2023 16:54:36 03/25/20 23 03/25/2023 COMPR EHENS KING METAB OLIC PANEL * potassium 4.6 mmol/ L 3.5-5. 1 Not Available [facility] [address], [place], [address], 03/26/2023 16:54:36 03/25/20 23 03/25/2023 COMPR EHENS KING METAB OLIC PANEL * chloride 106 mEq/L 98-107 Not Available [facility] [address], [place], [address], 03/26/2023 16:54:36 03/25/20 23 03/25/2023 COMPR EHENS KING METAB OLIC PANEL * carbon dioxide 25 mmol/ L 23-30 Not Available [facility] [address], [place], [address], 03/26/2023 16:54:36 03/25/20 23 03/25/2023 COMPR EHENS KING METAB OLIC PANEL * total protein 6.8 g/dL 6.2-8. 1 Not Available [facility] [address], [place], [address], 03/26/2023 16:54:36 03/25/20 23 03/25/2023 COMPR EHENS KING METAB OLIC PANEL * albumin 3.8 g/dL 3.2-4. 6 Not Available [facility] [address], [place], [address], 03/26/2023 16:54:36 03/25/20 23 03/25/2023 COMPR EHENS KING METAB OLIC PANEL * globulin 3.0 g/dL 2.3-3. 4 Not Available [facility] [address], [place], [address], 03/26/2023 16:54:36 03/25/20 23 03/25/2023 COMPR EHENS KING METAB OLIC PANEL * A/G ratio 1.3 g/dL 0.8-2. 0 Not Available [facility] [address], [place], [address], 03/26/2023 16:54:36 03/25/20 23 03/25/2023 COMPR EHENS KING METAB OLIC PANEL * alkaline phosphatase 76 U/L 30-120 Not Available [facility] [address], [place], [address], 03/26/2023 16:54:36 03/25/20 23 03/25/2023 COMPR EHENS KING METAB OLIC PANEL * ALT (SGPT) 16 U/L 13-40 Not Available [facility] [address], [place], [address], 03/26/2023 16:54:36 03/25/20 23 03/25/2023 COMPR EHENS KING METAB OLIC PANEL * AST (SGOT) 13 U/L 19-48 low Not Available [facility] [address], [place], [address], 03/26/2023 16:54:36 03/25/20 23 03/25/2023 COMPR EHENS KING METAB OLIC PANEL * bilirubin, total 0.40 mg/dL 0.20-1 .10 Not Available [facility] [address], [place], [address], 03/26/2023 16:54:36 03/25/20 23 03/25/2023 COMPR EHENS KING METAB OLIC PANEL * eGFR 55.17 mL/mi n/1.7 3m2 >60.00 low Refer ence Range for Chron ic Kidne y Disea se (CKD) GFR CKD Stage >60 Stage 1 or 2 30-60 Stage 3 15-29 Stage 4 <15 Stage 5 The estim ated glome rular filtr ation rate (eGFR ) was deter mined using the 2020 CKD-E PI creat inine equat ion, which does not consi sonny race as a facto r. This equat ion is for indiv idual s aged >=18 years with the resul t adjus bel to a body surfa ce area of 1.73 m2. This calcu latio n has been updat ed on labor atory repor ts effec tive 11/18 . Not Available [facility] [address], [place], [address], 03/26/2023 16:54:36 03/25/20 23 03/25/2023 LIPID PANEL * cholesterol 135 mg/dL <200 Natio nal Amalia stero l Educa tion Progr am (NCEP ) guide lines : Nic able: <200 mg/dL Borde rline : 200-2 39 mg/dL High: =>240 mg/dL Not Available [facility] [address], [place], [address], 03/26/2023 16:54:37 03/25/20 23 03/25/2023 LIPID PANEL * LDL 70 mg/dL <100 Natio nal Amalia stero l Educa tion Progr am (NCEP ) Guide lines : Optim al: <100 mg/dL Near Optim al: 100 - 129 mg/dL Borde rline : 130 - 159 mg/dL High: 160 - 189 mg/dL Very High: =>190 mg/dL Not Available [facility] [address], [place], [address], 03/26/2023 16:54:37 03/25/20 23 03/25/2023 LIPID PANEL * HDL 47 mg/dL 40-59 Natio nal Amalia stero l Educa tion Progr am (NCEP ) guide lines : Low: <40 mg/dL High: =>60 mg/dL Not Available [facility] [address], [place], [address], 03/26/2023 16:54:37 03/25/20 23 03/25/2023 LIPID PANEL * triglyceride s 59 mg/dL <150 Natio nal Amalia stero l Educa tion Progr am (NCEP ) guide lines : Rosa l: <150 mg/dL Borde rline : 150-1 99 mg/dL High: 200-4 99 mg/dL Very High: =>500 mg/dL Not Available [facility] [address], [place], [address], 03/26/2023 16:54:37 03/25/20 23 03/25/2023 LIPID PANEL * VLDL 12 mg/dL <30 Not Available [facility] [address], [place], [address], 03/26/2023 16:54:37 07/02/19 24 07/02/2023 COMPL ETE BLOOD COUNT WITH AUTO DIFF* WBC 6.23 10E3/ uL 4.50-1 1.50 Not Available [facility] [address], [place], [address], 07/03/2023 13:12:41 07/02/19 24 07/02/2023 COMPL ETE BLOOD COUNT WITH AUTO DIFF* RBC 4.69 10E6/ uL 4.60-6 .00 Not Available [facility] [address], [place], [address], 07/03/2023 13:12:41 07/02/19 24 07/02/2023 COMPL ETE BLOOD COUNT WITH AUTO DIFF* HGB 14.9 g/dL 14.0-1 8.0 Not Available [facility] [address], [place], [address], 07/03/2023 13:12:41 07/02/19 24 07/02/2023 COMPL ETE BLOOD COUNT WITH AUTO DIFF* HCT 45.8 % 40.0-5 4.0 Not Available [facility] [address], [place], [address], 07/03/2023 13:12:41 07/02/19 24 07/02/2023 COMPL ETE BLOOD COUNT WITH AUTO DIFF* MCV 98 fL 80-100 Not Available [facility] [address], [place], [address], 07/03/2023 13:12:41 07/02/19 24 07/02/2023 COMPL ETE BLOOD COUNT WITH AUTO DIFF* MCH 32 pg 26-32 Not Available [facility] [address], [place], [address], 07/03/2023 13:12:41 07/02/19 24 07/02/2023 COMPL ETE BLOOD COUNT WITH AUTO DIFF* MCHC 32.5 g/dL 32.0-3 6.0 Not Available [facility] [address], [place], [address], 07/03/2023 13:12:41 07/02/19 24 07/02/2023 COMPL ETE BLOOD COUNT WITH AUTO DIFF* RDW 12.5 % 11.5-1 4.5 Not Available [facility] [address], [place], [address], 07/03/2023 13:12:41 07/02/19 24 07/02/2023 COMPL ETE BLOOD COUNT WITH AUTO DIFF* plt 192 10E3/ uL 150-45 0 Not Available [facility] [address], [place], [address], 07/03/2023 13:12:41 07/02/19 24 07/02/2023 COMPL ETE BLOOD COUNT WITH AUTO DIFF* neut% 54.9 % 50.0-7 0.0 Not Available [facility] [address], [place], [address], 07/03/2023 13:12:41 07/02/19 24 07/02/2023 COMPL ETE BLOOD COUNT WITH AUTO DIFF* lymph% 31.6 % 18.0-4 2.0 Not Available [facility] [address], [place], [address], 07/03/2023 13:12:41 07/02/19 24 07/02/2023 COMPL ETE BLOOD COUNT WITH AUTO DIFF* mono% 9.1 % 2.0-11 .0 Not Available [facility] [address], [place], [address], 07/03/2023 13:12:41 07/02/19 24 07/02/2023 COMPL ETE BLOOD COUNT WITH AUTO DIFF* eos% 3.5 % 1.0-3. 0 high Not Available [facility] [address], [place], [address], 07/03/2023 13:12:41 07/02/19 24 07/02/2023 COMPL ETE BLOOD COUNT WITH AUTO DIFF* baso% 0.6 % 0.0-2. 0 Not Available [facility] [address], [place], [address], 07/03/2023 13:12:41 07/02/19 24 07/02/2023 COMPL ETE BLOOD COUNT WITH AUTO DIFF* Ig% 0.3 % 0.0-0. 6 Not Available [facility] [address], [place], [address], 07/03/2023 13:12:41 07/02/19 24 07/02/2023 COMPL ETE BLOOD COUNT WITH AUTO DIFF* neut# 3.41 10E3/ uL 2.30-8 .10 Not Available [facility] [address], [place], [address], 07/03/2023 13:12:41 07/02/19 24 07/02/2023 COMPL ETE BLOOD COUNT WITH AUTO DIFF* lymph# 1.97 10E3/ uL 0.80-4 .80 Not Available [facility] [address], [place], [address], 07/03/2023 13:12:41 07/02/19 24 07/02/2023 COMPL ETE BLOOD COUNT WITH AUTO DIFF* mono# 0.57 10E3/ uL 0.45-1 .30 Not Available [facility] [address], [place], [address], 07/03/2023 13:12:41 07/02/19 24 07/02/2023 COMPL ETE BLOOD COUNT WITH AUTO DIFF* eos# 0.22 10E3/ uL 0.00-0 .40 Not Available [facility] [address], [place], [address], 07/03/2023 13:12:41 07/02/19 24 07/02/2023 COMPL ETE BLOOD COUNT WITH AUTO DIFF* baso# 0.04 10E3/ uL 0.00-0 .10 Not Available [facility] [address], [place], [address], 07/03/2023 13:12:41 07/02/19 24 07/02/2023 COMPL ETE BLOOD COUNT WITH AUTO DIFF* Ig# 0.02 10E3/ uL 0.00-0 .09 Not Available [facility] [address], [place], [address], 07/03/2023 13:12:41 07/02/19 24 07/02/2023 HEMOG LOBIN A1C* hemoglobin A1C 5.6 % 3.7-6. 2 Not Available [facility] [address], [place], [address], 07/03/2023 13:12:42 07/02/19 24 07/02/2023 HEMOG LOBIN A1C* EAG 114 mg/dL Rosa l: 69-11 4 mg/dL Predi abete s: 117-1 37 mg/dL Diabe shaan: 140 mg/dL or Great er Not Available [facility] [address], [place], [address], 07/03/2023 13:12:42 07/02/19 24 07/02/2023 COMPR EHENS K[place] METAB OLIC PANEL * glucose 105 mg/dL 70-99 high The Ameri can Diabe shaan Assoc iatio n (ADA) recom mends the follo wing crite adalberto for the diagn osis of diabe shaan: 1) Sympt oms of diabe shaan and a rando m gluco se >200 mg/dL OR 2) Fasti ng gluco se >= 126 mg/dL on more than one occas ion. Impai red fasti ng gluco se (IFG) , a fasti ng gluco se betwe en 100 and 125 mg/dL , is defin ed by the ADA as a categ ory at risk for futur e diabe shaan and cardi ovasc ular disea se (Pred iabet es). Not Available [facility] [address], [place], [address], 07/03/2023 13:12:42 07/02/19 24 07/02/2023 COMPR EHENS KING METAB OLIC PANEL * BUN 18 mg/dL 8-23 Not Available [facility] [address], [place], [address], 07/03/2023 13:12:42 07/02/19 24 07/02/2023 COMPR EHENS KING METAB OLIC PANEL * calcium 8.7 mg/dL 8.8-10 .2 low Not Available [facility] [address], [place], [address], 07/03/2023 13:12:42 07/02/19 24 07/02/2023 COMPR EHENS KING METAB OLIC PANEL * creatinine 1.09 mg/dL 0.80-1 .30 Not Available [facility] [address], [place], [address], 07/03/2023 13:12:42 07/02/19 24 07/02/2023 COMPR EHENS KING METAB OLIC PANEL * sodium 140 mmol/ L 136-14 5 Not Available [facility] [address], [place], [address], 07/03/2023 13:12:42 07/02/19 24 07/02/2023 COMPR EHENS KING METAB OLIC PANEL * potassium 4.9 mmol/ L 3.5-5. 1 Not Available [facility] [address], [place], [address], 07/03/2023 13:12:42 07/02/19 24 07/02/2023 COMPR EHENS KING METAB OLIC PANEL * chloride 103 mEq/L 98-107 Not Available [facility] [address], [place], [address], 07/03/2023 13:12:42 07/02/19 24 07/02/2023 COMPR EHENS KING METAB OLIC PANEL * carbon dioxide 27 mmol/ L 23-30 Not Available [facility] [address], [place], [address], 07/03/2023 13:12:42 07/02/19 24 07/02/2023 COMPR EHENS KING METAB OLIC PANEL * total protein 7.4 g/dL 6.2-8. 1 Not Available [facility] [address], [place], [address], 07/03/2023 13:12:42 07/02/19 24 07/02/2023 COMPR EHENS KING METAB OLIC PANEL * albumin 3.8 g/dL 3.2-4. 6 Not Available [facility] [address], [place], [address], 07/03/2023 13:12:42 07/02/19 24 07/02/2023 COMPR EHENS KING METAB OLIC PANEL * globulin 3.6 g/dL 2.3-3. 4 high Not Available [facility] [address], [place], [address], 07/03/2023 13:12:42 07/02/19 24 07/02/2023 COMPR EHENS KING METAB OLIC PANEL * A/G ratio 1.1 g/dL 0.8-2. 0 Not Available [facility] [address], [place], [address], 07/03/2023 13:12:42 07/02/19 24 07/02/2023 COMPR EHENS KING METAB OLIC PANEL * alkaline phosphatase 75 U/L 30-120 Not Available [facility] [address], [place], [address], 07/03/2023 13:12:42 07/02/19 24 07/02/2023 COMPR EHENS KING METAB OLIC PANEL * ALT (SGPT) 26 U/L 13-40 Not Available [facility] [address], [place], [address], 07/03/2023 13:12:42 07/02/19 24 07/02/2023 COMPR EHENS KING METAB OLIC PANEL * AST (SGOT) 17 U/L 19-48 low Not Available [facility] [address], [place], [address], 07/03/2023 13:12:42 07/02/19 24 07/02/2023 COMPR EHENS KING METAB OLIC PANEL * bilirubin, total 0.58 mg/dL 0.20-1 .10 Not Available [facility] [address], [place], [address], 07/03/2023 13:12:42 07/02/19 24 07/02/2023 COMPR EHENS KING METAB OLIC PANEL * eGFR >60.00 mL/mi n/1.7 3m2 >60.00 The estim ated glome rular filtr ation rate (eGFR ) was deter mined using the 2020 CKD-E PI creat inine equat ion, which does not consi sonny race as a facto r. This equat ion is for indiv idual s aged >=18 years with the resul t adjus bel to a body surfa ce area of 1.73 m2. This calcu latio n has been updat ed on labor atory repor ts effec tive 11/18 . Not Available [facility] [address], [place], [address], 07/03/2023 13:12:42 07/02/19 24 07/02/2023 LIPID PANEL * cholesterol 153 mg/dL <200 Natio nal Amalia stero l Educa tion Progr am (NCEP ) guide lines : Nic able: <200 mg/dL Borde rline : 200-2 39 mg/dL High: =>240 mg/dL Not Available [facility] [address], [place], [address], 07/03/2023 13:12:42 07/02/19 24 07/02/2023 LIPID PANEL * LDL 78 mg/dL <100 Natio nal Amalia stero l Educa tion Progr am (NCEP ) Guide lines : Optim al: <100 mg/dL Near Optim al: 100 - 129 mg/dL Borde rline : 130 - 159 mg/dL High: 160 - 189 mg/dL Very High: =>190 mg/dL Not Available [facility] [address], [place], [address], 07/03/2023 13:12:42 07/02/19 24 07/02/2023 LIPID PANEL * HDL 48 mg/dL 40-59 Natio nal Amalia stero l Educa tion Progr am (NCEP ) guide lines : Low: <40 mg/dL High: =>60 mg/dL Not Available [facility] [address], [place], [address], 07/03/2023 13:12:42 07/02/19 24 07/02/2023 LIPID PANEL * triglyceride s 108 mg/dL <150 Natio nal Amalia stero l Educa tion Progr am (NCEP ) guide lines : Rosa l: <150 mg/dL Borde rline : 150-1 99 mg/dL High: 200-4 99 mg/dL Very High: =>500 mg/dL Not Available [facility] [address], [place], [address], 07/03/2023 13:12:42 07/02/19 24 07/02/2023 LIPID PANEL * VLDL 22 mg/dL <30 Not Available [facility] [address], [place], [address], 07/03/2023 13:12:42 09/10/19 24 09/10/2023 COMPL ETE BLOOD COUNT WITH AUTO DIFF* WBC 6.43 10E3/ uL 4.50-1 1.50 Not Available [facility] [address], [place], [address], 09/11/2023 13:12:44 09/10/19 24 09/10/2023 COMPL ETE BLOOD COUNT WITH AUTO DIFF* RBC 4.53 10E6/ uL 4.60-6 .00 low Not Available [facility] [address], [place], [address], 09/11/2023 13:12:44 09/10/19 24 09/10/2023 COMPL ETE BLOOD COUNT WITH AUTO DIFF* HGB 14.5 g/dL 14.0-1 8.0 Not Available [facility] [address], [place], [address], 09/11/2023 13:12:44 09/10/19 24 09/10/2023 COMPL ETE BLOOD COUNT WITH AUTO DIFF* HCT 44.6 % 40.0-5 4.0 Not Available [facility] [address], [place], [address], 09/11/2023 13:12:44 09/10/19 24 09/10/2023 COMPL ETE BLOOD COUNT WITH AUTO DIFF* MCV 99 fL 80-100 Not Available [facility] [address], [place], [address], 09/11/2023 13:12:44 09/10/19 24 09/10/2023 COMPL ETE BLOOD COUNT WITH AUTO DIFF* MCH 32 pg 26-32 Not Available [facility] [address], [place], [address], 09/11/2023 13:12:44 09/10/19 24 09/10/2023 COMPL ETE BLOOD COUNT WITH AUTO DIFF* MCHC 32.5 g/dL 32.0-3 6.0 Not Available [facility] [address], [place], [address], 09/11/2023 13:12:44 09/10/19 24 09/10/2023 COMPL ETE BLOOD COUNT WITH AUTO DIFF* RDW 12.0 % 11.5-1 4.5 Not Available [facility] [address], [place], [address], 09/11/2023 13:12:44 09/10/19 24 09/10/2023 COMPL ETE BLOOD COUNT WITH AUTO DIFF* plt 209 10E3/ uL 150-45 0 Not Available [facility] [address], [place], [address], 09/11/2023 13:12:44 09/10/19 24 09/10/2023 COMPL ETE BLOOD COUNT WITH AUTO DIFF* neut% 61.4 % 50.0-7 0.0 Not Available [facility] [address], [place], [address], 09/11/2023 13:12:44 09/10/19 24 09/10/2023 COMPL ETE BLOOD COUNT WITH AUTO DIFF* lymph% 25.5 % 18.0-4 2.0 Not Available [facility] [address], [place], [address], 09/11/2023 13:12:44 09/10/19 24 09/10/2023 COMPL ETE BLOOD COUNT WITH AUTO DIFF* mono% 8.4 % 2.0-11 .0 Not Available [facility] [address], [place], [address], 09/11/2023 13:12:44 09/10/19 24 09/10/2023 COMPL ETE BLOOD COUNT WITH AUTO DIFF* eos% 3.4 % 1.0-3. 0 high Not Available [facility] [address], [place], [address], 09/11/2023 13:12:44 09/10/19 24 09/10/2023 COMPL ETE BLOOD COUNT WITH AUTO DIFF* baso% 0.8 % 0.0-2. 0 Not Available [facility] [address], [place], [address], 09/11/2023 13:12:44 09/10/19 24 09/10/2023 COMPL ETE BLOOD COUNT WITH AUTO DIFF* Ig% 0.5 % 0.0-0. 6 Not Available [facility] [address], [place], [address], 09/11/2023 13:12:44 09/10/19 24 09/10/2023 COMPL ETE BLOOD COUNT WITH AUTO DIFF* neut# 3.95 10E3/ uL 2.30-8 .10 Not Available [facility] [address], [place], [address], 09/11/2023 13:12:44 09/10/19 24 09/10/2023 COMPL ETE BLOOD COUNT WITH AUTO DIFF* lymph# 1.64 10E3/ uL 0.80-4 .80 Not Available [facility] [address], [place], [address], 09/11/2023 13:12:44 09/10/19 24 09/10/2023 COMPL ETE BLOOD COUNT WITH AUTO DIFF* mono# 0.54 10E3/ uL 0.45-1 .30 Not Available [facility] [address], [place], [address], 09/11/2023 13:12:44 09/10/19 24 09/10/2023 COMPL ETE BLOOD COUNT WITH AUTO DIFF* eos# 0.22 10E3/ uL 0.00-0 .40 Not Available [facility] [address], [place], [address], 09/11/2023 13:12:44 09/10/19 24 09/10/2023 COMPL ETE BLOOD COUNT WITH AUTO DIFF* baso# 0.05 10E3/ uL 0.00-0 .10 Not Available [facility] [address], [place], [address], 09/11/2023 13:12:44 09/10/19 24 09/10/2023 COMPL ETE BLOOD COUNT WITH AUTO DIFF* Ig# 0.03 10E3/ uL 0.00-0 .09 Not Available [facility] [address], [place], [address], 09/11/2023 13:12:44 09/10/19 24 09/10/2023 COMPR EHENS KING METAB OLIC PANEL * glucose 89 mg/dL 70-99 The Ameri can Diabe [place] Ass[employer] i[employer] n (ADA) recom mends the follo wing crite adalberto for the diagn osis of diabe shaan: 1) Sympt oms of diabe shaan and a rando m gluco se >200 mg/dL OR 2) Fasti ng gluco se >= 126 mg/dL on more than one occas ion. Impai red fasti ng gluco se (IFG) , a fasti ng gluco se betwe en 100 and 125 mg/dL , is defin ed by the ADA as a categ ory at risk for futur e diabe shaan and cardi ovasc ular disea se (Pred iabet es). Not Available [facility] [address], [place], [address], 09/11/2023 13:12:45 09/10/19 24 09/10/2023 COMPR EHENS KING METAB OLIC PANEL * BUN 15 mg/dL 8-23 Not Available [facility] [address], [place], [address], 09/11/2023 13:12:45 09/10/19 24 09/10/2023 COMPR EHENS KING METAB OLIC PANEL * calcium 8.3 mg/dL 8.8-10 .2 low Not Available [facility] [address], [place], [address], 09/11/2023 13:12:45 09/10/19 24 09/10/2023 COMPR EHENS KING METAB OLIC PANEL * creatinine 1.09 mg/dL 0.80-1 .30 Not Available [facility] [address], [place], [address], 09/11/2023 13:12:45 09/10/19 24 09/10/2023 COMPR EHENS KING METAB OLIC PANEL * sodium 142 mmol/ L 136-14 5 Not Available [facility] [address], [place], [address], 09/11/2023 13:12:45 09/10/19 24 09/10/2023 COMPR EHENS KING METAB OLIC PANEL * potassium 4.5 mmol/ L 3.5-5. 1 Not Available [facility] [address], [place], [address], 09/11/2023 13:12:45 09/10/19 24 09/10/2023 COMPR EHENS KING METAB OLIC PANEL * chloride 106 mEq/L 98-107 Not Available [facility] [address], [place], [address], 09/11/2023 13:12:45 09/10/19 24 09/10/2023 COMPR EHENS KING METAB OLIC PANEL * carbon dioxide 25 mmol/ L 23-30 Not Available [facility] [address], [place], [address], 09/11/2023 13:12:45 09/10/19 24 09/10/2023 COMPR EHENS KING METAB OLIC PANEL * total protein 6.6 g/dL 6.2-8. 1 Not Available [facility] [address], [place], [address], 09/11/2023 13:12:45 09/10/19 24 09/10/2023 COMPR EHENS KING METAB OLIC PANEL * albumin 3.4 g/dL 3.2-4. 6 Not Available [facility] [address], [place], [address], 09/11/2023 13:12:45 09/10/19 24 09/10/2023 COMPR EHENS KING METAB OLIC PANEL * globulin 3.2 g/dL 2.3-3. 4 Not Available [facility] [address], [place], [address], 09/11/2023 13:12:45 09/10/19 24 09/10/2023 COMPR EHENS KING METAB OLIC PANEL * A/G ratio 1.1 g/dL 0.8-2. 0 Not Available [facility] [address], [place], [address], 09/11/2023 13:12:45 09/10/19 24 09/10/2023 COMPR EHENS KING METAB OLIC PANEL * alkaline phosphatase 79 U/L 30-120 Not Available [facility] [address], [place], [address], 09/11/2023 13:12:45 09/10/19 24 09/10/2023 COMPR EHENS KING METAB OLIC PANEL * ALT (SGPT) 30 U/L 13-40 Not Available [facility] [address], [place], [address], 09/11/2023 13:12:45 09/10/19 24 09/10/2023 COMPR EHENS KING METAB OLIC PANEL * AST (SGOT) 19 U/L 19-48 Not Available [facility] [address], [place], [address], 09/11/2023 13:12:45 09/10/19 24 09/10/2023 COMPR EHENS KING METAB OLIC PANEL * bilirubin, total 0.38 mg/dL 0.20-1 .10 Not Available [facility] [address], [place], [address], 09/11/2023 13:12:45 09/10/19 24 09/10/2023 COMPR EHENS KING METAB OLIC PANEL * eGFR >60.00 mL/mi n/1.7 3m2 >60.00 The estim ated glome rular filtr ation rate (eGFR ) was deter mined using the 2020 CKD-E PI creat inine equat ion, which does not consi sonny race as a facto r. This equat ion is for indiv idual s aged >=18 years with the resul t adjus bel to a body surfa ce area of 1.73 m2. This calcu laternesto n has been updat ed on labor atory repor ts effec tive 11/18 . Not Available [employer] [address], [place], [address], 09/11/2023 13:12:45 09/10/19 24 09/10/2023 LIPID PANEL * cholesterol 120 mg/dL <200 Natio nal Amalia stero l Educa tion Progr am (NCEP ) guide lines : Nic able: <200 mg/dL Borde rline : 200-2 39 mg/dL High: =>240 mg/dL Not Available [employer] [address], [place], [address], 09/11/2023 13:12:45 09/10/19 24 09/10/2023 LIPID PANEL * LDL 61 mg/dL <100 Natio nal Amalia stero l Educa tion Progr am (NCEP ) Guide lines : Optim al: <100 mg/dL Near Optim al: 100 - 129 mg/dL Borde rline : 130 - 159 mg/dL High: 160 - 189 mg/dL Very High: =>190 mg/dL Not Available [facility] [address], [place], [address], 09/11/2023 13:12:45 09/10/19 24 09/10/2023 LIPID PANEL * HDL 42 mg/dL 40-59 Natio nal Amalia stero l Educa tion Progr am (NCEP ) guide lines : Low: <40 mg/dL High: =>60 mg/dL Not Available [facility] [address], [place], [address], 09/11/2023 13:12:45 09/10/19 24 09/10/2023 LIPID PANEL * triglyceride s 79 mg/dL <150 Natio nal Amalia stero l Educa tion Progr am (NCEP ) guide lines : Rosa l: <150 mg/dL Borde rline : 150-1 99 mg/dL High: 200-4 99 mg/dL Very High: =>500 mg/dL Not Available [facility] [address], [place], [address], 09/11/2023 13:12:45 09/10/19 24 09/10/2023 LIPID PANEL * VLDL 16 mg/dL <30 Not Available [facility] [address], [place], [address], 09/11/2023 13:12:45 Result Notes None recorded. Problems Name Problem SNOMED Code Status Onset Date Resolution Date Notes Provider Name and Address Organization Details Recorded Time Hyperlipide antoinette 53519567 Active 2022 Amira Collado Boy AGRICULTURAL SCIENTIST-BC, PMHNP-BC [address], [place], [address], [facility] - [facility] 3 11:24:41 Generalized anxiety disorder 86371204 Active 2022 Amira Tobias Boy AGRICULTURAL SCIENTIST-BC, PMHNP-BC [address], [place], [address], [facility] - [facility] 3 11:24:41 Parkinson's disease 85859526 Active 2022 Amira Tobias Boy AGRICULTURAL SCIENTIST-BC, PMHNP-BC [address], [place], [address], [facility] 3 11:24:41 Major depressive disorder 206063914 Completed 202206/30/2023 Amira Collado Boy AGRICULTURAL SCIENTIST-BC, PMHNP-BC [address], [place], [address], [place] [facility] 4 09:48:57 Major depressive disorder 783931964 Active 2023 Amira Collado Boy AGRICULTURAL SCIENTIST-BC, PMHNP-BC [address], [place], [address], [place] [facility] 4 09:48:57 Constipatio n 49609508 Active 2023 Amira Brunson, [facility], [facility] [address] [place], [address], [facility] 4 09:50:48 Problem Notes None recorded. Procedures Surgical History Date Name Laterality Status Provider Name and Address Organization Details Recorded Time replacement of bilateral hip joints completed [facility] 11/28/2022 15:26:51 Total Knee Replacement, Right completed [facility] 11/28/2022 15:27:09 tooth extraction completed [facility] 11/28/2022 15:27:20 Imaging Results None recorded. Procedure Notes None recorded. Medical Equipment None Reported. Allergies Allergen ID Allergen Name Allergen Category Reaction Reaction Severity Criticality Documentation Date Start Date Code Code System Note Provider Name and Address Organization Details Recorded Time 6671 Demerol medicatio n Not available Not available Not available 11/27/2022 18672 1 RxNorm Shamyra Beryl [facility] 3 18:15:02 6971 meperidin e medicatio n dizziness Not available Not available 03/23/20232022 6754 RxNorm Amira Brunson, [facility], [facility]- [address] [place], [address], [facility] 3 11:24:18 Medications Name Sig Start Date Stop Date Status Note LastModified by Organization Details LastModified Time amantadine HCl 100 mg tablet Take 1 tablet twice a day by oral route for 90 days. active Not Available Not Available No t Available polyethylene glycol 3350 17 gram oral powder packet 17 g by oral route. active Not Available Not Available No t Available citalopram 10 mg tablet TAKE 2 TABLETS BY MOUTH EVERY DAY active Not Available Not Available No t Available citalopram 20 mg tablet TAKE 1 TABLET BY MOUTH EVERY DAY active Not Available Not Available No t Available aspirin 81 mg chewable tablet 81 mg by oral route. active Not Available Not Available No t Available carbidopa 25 mg-levodopa 100 mg tablet TAKE 2 TABLETS BY MOUTH 3 TIMES DAILY. active Not Available Not Available No t Available rosuvastatin 5 mg tablet TAKE 0.5 TABLETS BY MOUTH EVERY DAY FOR 90 DAYS. active Not Available Not Available No t Available Fish Oil 1,200 mg (144 mg-216 mg) capsule Take 2 capsules every day by oral route. active Not Available Not Available No t Available Vitals Date Recorded Heart rate Respiratory rate Oxygen saturation Body temperature Pain severity - 0-10 verbal numeric rating [Score] - Reported Systolic And Diastolic Provider Name and Address Organization Details Last Updated DateTime 4 91 /min 18 /min 99 % 97.1 [degF] 0 120/78 mm[Hg] [facility] 4 08:59:55 Date Recorded Heart rate Respiratory rate Oxygen saturation Body temperature Pain severity - 0-10 verbal numeric rating [Score] - Reported Systolic And Diastolic Provider Name and Address Organization Details Last Updated DateTime 4 76 /min 18 /min 97 % 98 [degF] 0 128/88 mm[Hg] [facility] 4 09:56:21 Date Recorded Heart rate Respiratory rate Oxygen saturation Body temperature Pain severity - 0-10 verbal numeric rating [Score] - Reported Systolic And Diastolic Provider Name and Address Organization Details Last Updated DateTime 3 91 /min 18 /min 97 % 97.8 [degF] 0 120/76 mm[Hg] [facility] 3 15:25:19 Date Recorded Heart rate Respiratory rate Oxygen saturation Body temperature Pain severity - 0-10 verbal numeric rating [Score] - Reported Systolic And Diastolic Provider Name and Address Organization Details Last Updated DateTime 3 77 /min 18 /min 98 % 97.3 [degF] 0 128/80 mm[Hg] [facility] 3 10:06:56 Social History Question Answer Notes LastModified by Organization Details LastModified Time Tobacco Smoking Status Never Smoker Terri Morelena [facility] 11/28/2022 15:13:35 Do You Have An Advance Directive? Yes Information not available 11/27/2022 Are You Currently Sexually Active With Anyone Who Has Traveled (within The Last 12 Weeks) To A Zika-affected Area? No Information not available 11/27/2022 Are You Blind Or Do You Have Difficulty Seeing? Yes Reading Glasses Information not available 11/28/2022 What Is Your Level Of Caffeine Consumption? Occasional Coffee And Soda Information not available 11/28/2022 What Is Your Code Status? DNR [email or web address] Information not available 11/27/2022 In The 14 Days Before Symptom Onset, Have You Had Close Contact With A Laboratory-confi rmed COVID-19 While That Case Was Ill? No [email or web address] Information not available 11/27/2022 In The 14 Days Before Symptom Onset, Have You Had Close Contact With A Person Who Is Under Investigation For COVID-19 While That Person Was Ill? No [email or web address] Information not available 11/27/2022 Have You Been To An Area Known To Be High Risk For COVID-19? No [email or web address] Information not available 11/27/2022 Are You Deaf Or Do You Have Serious Difficulty Hearing? No Information not available 11/28/2022 What Type Of Diet Are You Following? REGULAR Information not available 11/28/2022 Have You Processed Blood Or Body Fluids From An Ebola Virus Disease Patient Without Appropriate PPE? No [email or web address] Information not available 11/27/2022 Do You Reside In Or Have You Traveled To An Area Where Ebola Virus Transmission Is Active? No [email or web address] Information not available 11/27/2022 What Is The Highest Grade Or Level Of School You Have Completed Or The Highest Degree You Have Received? [id number] Information not available 11/28/2022 How Many Times Per Week Do You Exercise? 3-4 Times Per Week Information not available 11/28/2022 Have There Been Any Changes To Your Family Or Social Situation? No Information not available 11/28/2022 Are There Any Guns Present In Your Home? No Information not available 11/28/2022 Which Of Your Hands Is Dominant? Right Information not available 11/28/2022 Have You Recently Or Are You Planning To Travel To An Area With Zika Virus? No [email or web address] Information not available 11/27/2022 Do You Have A Medical Power Of Helicopter Officer? Yes Rubi Eric Information not available 11/28/2022 What Was The Date Of Your Most Recent Tobacco Screening? 12/30/2022 [email or web address] Information not available 12/30/2022 How Many Children Do You Have? 2 3 Grandchildren Information not available 11/28/2022 Do You Have Any Pets? No Information not available 11/28/2022 What Is Your Relationship Status? [email or web address] Information not available 11/27/2022 Do You Use Your Seat Belt Or Car Seat Routinely? Yes Information not available 11/28/2022 Are You Sexually Active? No [email or web address] Information not available 11/27/2022 Do You Have Smoke And Carbon Monoxide Detectors In Your Home? Yes Information not available 11/28/2022 Are You Passively Exposed To Smoke? No Information not available 11/28/2022 Do You Participate In Social Media? No Information not available 11/28/2022 What Types Of Sporting Activities Do You Participate In? Activities In Assisted Living Programs Information not available 11/28/2022 Do You Use Sunscreen Routinely? No Information not available 11/28/2022 Have You Recently Traveled Abroad? No [email or web address] Information not available 11/27/2022 Do You Have Difficulty Walking Or Climbing Stairs? Yes Uses Walker And Cane Information not available 11/28/2022 Are You Currently In School? No Information not available 11/28/2022 Do You Have Any Dietary Restrictions? No Information not available 11/28/2022 Sex: Male Functional Status Question Answer Note LastModified by [employer] Website Promotionsat ion Details LastModified Time Do you use any illicit or recreational drugs? No Information not available 11/28/2022 Do you or have you ever used any other forms of tobacco or nicotine? No Information not available 11/28/2022 What is your level of alcohol consumption? None Information not available 11/28/2022 Are you currently employed? No Information not available 11/28/2022 Do you have transportation difficulties? No Information not available 11/28/2022 Are you able to walk independently without assistance or assistive devices? [email or web address] Information not available 11/28/2022 Do you have difficulty doing errands alone? Yes Information not available 11/28/2022 Are you able to care for yourself independently? No parkinson's progressing Information not available 11/28/2022 Do you have difficulty dressing, bathing, grooming, or toileting? Yes Information not available 11/28/2022 What is your exercise level? Occasional Information not available 11/28/2022 Mental Status Question Answer Note LastModified by Organizat ion Details LastModified Time Do you feel stressed (tense, restless, nervous, or anxious, or unable to sleep at night)? [id number] in 2000, diagnosed with depression since 's passing Information not available 11/28/2022 Do you have difficulty concentrating, remembering or making decisions? Yes Information not available 11/28/2022 Family History Relationship Description Onset Age of this Age Resolved Age Notes LastModified by Organization Details LastModified Time Mother Heart disease [email or web address] Not available 2022 15:23:54 Sister Malignant neoplasm of thyroid gland [email or web address] Not available 2022 15:24:10 Sister Malignant neoplasm of liver [email or web address] Not available 2022 15:24:21 Brother Diabetes mellitus [email or web address] Not available 2022 15:24:33 Daughter Anxiety disorder [email or web address] Not available 2022 15:24:49 Daughter Depressive disorder [email or web address] Not available 2022 15:24:58 Son Abnormal breathing [email or web address] Not available 2022 15:25:30 Medical History Condition Response Anxiety Disorder Y Parkinsons Disease Y Hospitalizations Y Vascular Diseases / Disorders Y Hyperlipidemia Y Hypertension Y Immunizations Vaccine Type Date Status Note Provider Nam e and Address Organization Details Recorded Time Influenza, adjuvanted, quadrivalent, PF 01/15/2023 completed Not Available [facility] 08:39:41 Past Encounters Encounter ID Performer Location Encounter Start Date Encounter Closed Date Diagnosis/Indication Diagnosis SNOMED-CT Code Diagnosis ICD10 Code Diagnosis IMO Codes Diagnosis Note [id number] Amira Brunson, AGRICULTURAL SCIENTIST-BC, PMHNP-BC [facility] [address] [place] [address] 12/29/2022 08:12:49 12/30/2022 15:09:31 Advance care planning 160397525 Z71.89 Parkinson's disease 4904 9000 G20 Hyperlipidemia 51354117 E78.00 taking medication s. labs to eval levels Generalize d anxiety disorder 66856648 F41.1 doing well on Citalopram , but does have some breakthrou gh at times. Right now he is stable and should he start having more will see him and make adjustment s to regimen. [id number] Amira BrunsonREBA-, PMHNP-BC [facility] [address] [place] [address] 03/23/2023 07:09:31 03/23/2023 13:19:19 Hyperlipidemia 31255523 E78.00 taking medication s. labs to eval levels Major depr essive disorder 292281293 F32.9 [id number] Amira BrunsonGABE, PMHNP-BC [facility] [address] [place] [address] 06/10/2023 08:30:55 06/10/2023 17:57:37 Hyperlipidemia 94651059 E78.00 Major depr essive disorder 786211728 F32.9 Parkinson's disease 4904 9000 G20.A1 Disability affecting daily living 151109839 Z73.6 Glucose le patria outside reference range 105915093 R73.09 Dysphagia 53674534 R13.1 0 [id number] Amira BrunsonRICKYP-, PMHNP-BC [facility] [address] [place] [address] 06/30/2023 16:31:57 07/01/2023 08:31:02 Moderate recurrent major depression 82277735 F33.1 Hyperlipidemia 28555047 E78.00 Orthostati c hypotension 65736912 I95.1 Parkinson's disease 4904 9000 G20.A1 [id number] Amira BrunsonREBA-, PMHNP-BC [facility] [address] [place] [address] 09/02/2023 08:03:59 09/02/2023 16:53:39 Major depressive disorder 180381766 F33.1 Hyperlipidemia 60215236 E78.00 Constipation 89660107 K5 9.00 Health Concerns Section Related Observation LastModified by Organization Detai ls LastModified Time None Recorded Concern Status LastModified by Organization Details LastModified Time None Recorded Advance Directives Directive Y: Payers Insurance Date Sequence Insurance Name Policy Number Policy Sofia Covered Member ID Sofia Member ID Guarantor Name 11/24/2023 2 [place] [id number] Tirso Acosta [id number] Tirso Acosta 11/24/2023 1 [place] Tirso Acosta [id number] Tirso Acosta Notes Date Note Type Note Provider Name and Address Organization Details Recorded Time 3 text/html Parkinson's - recently moved from [place] and has been having some issues at time ambulating.HLD - Compliant with statin. No side effects. GABE Kolb, [facility] [address] [place], [address], [facility] 12/30/2022 14:48:29 3 text/html Anxiety/DepressionReporte d by PatientHPIFor associated symptoms, patient reportsdepressionbut reportsdenies homicidal ideations,no significant weight gain,no significant weight loss,no visual/auditory hallucinations,no delusions,no shortness of breath,mood good,no anxiety,no crying spells,no panic,no isolation,sleeping well,appetite good,energy good,no apathy, andmaintaining functionality. For severity, patient reportsdenies suicidal ideations,able to maintain relationships, anddoes not interfere with activities of daily living. For context, patient reportsno major life stressors. For quality, (having more days than not of depression, but going about day.).Has been intermittently changing Citalopram taking 1 tab one day and 2 tabs other days. HLD - Compliant with statin. No side effects. GABE Kolb, [facility] [address] [place], [address], [facility] 03/23/2023 11:26:08 4 text/html Anxiety/DepressionReporte d by PatientHPIFor associated symptoms, patient reportsdepressionbut reportsdenies homicidal ideations,no significant weight gain,no significant weight loss,no visual/auditory hallucinations,no delusions,no shortness of breath,mood good,no anxiety,no crying spells,no panic,no isolation,sleeping well,appetite good,energy good,no apathy, andmaintaining functionality. For quality, patient reportssymptoms improved. For severity, patient reportsdenies suicidal ideations,able to maintain relationships, anddoes not interfere with activities of daily living. For context, patient reportsno major life stressors.having more good than bad days. Denies SI/HI. HLD - Compliant with statin. No side effects.On routine labs noted to have elevated glucose.Has Parkinson's and has been having a bit more difficult time ambulating, ADLs, and swallowing. He reports that he is getting a bit stiffer and sometimes getting up and walking is a bit more difficult than usual. He reports difficulties with ADLs and finds it very difficult with writing, shaving, bathing, etc. He reports dysphagia which is often more prevalent with liquids. It is not constant, but frequent enough to be concerning for him. Amira Brunson, AGRICULTURAL SCIENTIST-BC, PMHNP-BC [address] [place], [address], [facility] 06/10/2023 16:34:44 4 text/html Anxiety/DepressionReporte d by PatientHPIFor associated symptoms, patient reportsdepressionbut reportsdenies homicidal ideations,no significant weight gain,no significant weight loss,no visual/auditory hallucinations,no delusions,no shortness of breath,mood good,no anxiety,no crying spells,no panic,no isolation,sleeping well,appetite good,energy good,no apathy, andmaintaining functionality. For quality, patient reportssymptoms improved. For severity, patient reportsdenies suicidal ideations,able to maintain relationships, anddoes not interfere with activities of daily living. For context, patient reportsno major life stressors.having more good than bad days. Denies SI/HI.ROS as noted in the HPI Patient Verification & Telemedicine Based Consent. Today's visit was conducted virtually due to COVID-19 countermeasures. The patient/POA/Caregiver has given verbal consent to have today's visit conducted by this same means with treatment provided remotely. The patient/POA/Caregiver verbally consents to the billing and collection practices of the provider's medical group. Requested telemedicine visit due to COVID-19 and provided verbal consent prior to visit. Symptoms and conditions treated are done via subjective statements and explanations thus may or may not fully treat the condition given it is based on subjective statements. Video and audio conferencing performed. Tirso presents with daughter Halima. Tirso reports experiencing dizziness when transitioning from a sitting or lying position to standing. He has a diagnosis of Parkinson's disease and is on a treatment regimen that includes carbidopa-levodopa and amantadine. Had previously been told such could be attributed to dehydration, and has increased his water intake as a countermeasure. Tirso describes his mood as stable, though he acknowledges experiencing occasional feelings of sadness and depression. He is currently managing his depression with two 10 mg tablets of Citalopram daily, following a previous doctor's recommendation. His daughter has raised concerns regarding his depressive symptoms, and Tirso himself is uncertain whether these feelings stem from grief, loss of independence, or another cause. Triso has been engaging in physical therapy to enhance his mobility and diversify his daily activities beyond watching television. Despite a few falls, he is focused on improving his walking capabilities during therapy sessions and relies on a walker for support, though he notes a decline in his confidence regarding mobility. Tirso has a medical history that includes a transient ischemic attack (TIA) in 2014. For cholesterol management, he is currently taking Rosuvastatin. Following the TIA, Tirso experienced significant weight loss, and his cholesterol levels were reported to be within normal ranges in March. He is contemplating transitioning from statin medication to a fish oil supplement as a more natural approach to managing his cholesterol. Amira Brunson, AGRICULTURAL SCIENTIST-BC, PMHNP-BC [address] [place], [address], [facility] 06/30/2023 21:18:15 4 text/html Tirso reports generally feeling good and denies any recent feelings of depression or sadness. He mentions that his mood is good and he does not experience a decrease in interest in activities he once enjoyed. Tirso recalls a recent incident where he ate something that disagreed with him, leading him to skip subsequent meals, but does not express ongoing concerns related to this episode. Tirso is currently on citalopram, which was increased from 10 milligrams to 20 milligrams, and rosuvastatin for cholesterol management. He expresses interest in trying fish oil instead of rosuvastatin. Tirso also mentions that his depression began after his , which initially left him feeling alone and lost. However, he notes improvement in his mood as he has come to accept his circumstances. Tirso confirms that he is sleeping well and his appetite is good. He has established care with a neurologist for his Parkinson's disease and is on medication to prevent dyskinesia. Regarding his bowel movements, he indicates they are generally good as long as he continues taking Miralax for constipation. Amira Brunson, AGRICULTURAL SCIENTIST-BC, PMHNP-BC [address] [place], [address], [facility] 09/02/2023 15:53:22
== END 2025-04-11 11:58 | disposition home or self-care (01) ==
PROVIDERS: Emergency Provider Emergency Medicine; PCP Internal Medicine
DX: S30.0XXA Contusion of lower back and pelvis, initial encounter (principal); S09.90XA Unspecified injury of head, initial encounter; E78.5 Hyperlipidemia, unspecified; G20.A1 Parkinson's disease without dyskinesia, without mention of fluctuations; F32.9 Major depressive disorder, single episode, unspecified; R29.6 Repeated falls; M47.814 Spondylosis without myelopathy or radiculopathy, thoracic region; M47.816 Spondylosis without myelopathy or radiculopathy, lumbar region; W18.30XA Fall on same level, unspecified, initial encounter
CPT/HCPCS: 70450; 72125; 72128; 72131; 72192; 99284